=== PATIENT | female | born 1985 | race Two or more races ===

== ENCOUNTER 2020-08-10 09:01 | Outpatient (REF) | payer OTHER, SELFPAY ==
[2020-08-10 14:34] LABS: CT PCR NOT DETECTED (Not Detect.); NG PCR NOT DETECTED (Not Detect.)
[2020-08-11 09:26] LABS: BV Int Neg Control Negative (Negative); BV Int Pos Control Positive (Positive)
[2020-08-24 13:01] LABS: HPV mRNA E6/E7 rflx Not Detected
== END 2020-08-10 09:02 | disposition home or self-care (01) ==
LOC: HO.LAB 09:01
PROVIDERS: PCP Internal Medicine; Visit Provider Advanced Practice Midwife
DX: Z01.419 Encounter for gynecological examination (general) (routine) without abnormal findings (principal); Z11.51 Encounter for screening for human papillomavirus (HPV); F17.210 Nicotine dependence, cigarettes, uncomplicated; Z88.8 Allergy status to other drugs, medicaments and biological substances; Z91.013 Allergy to seafood
CPT/HCPCS: 36415; 87480; 87491; 87510; 87591; 87624; 87660; 88142

== ENCOUNTER 2021-01-11 08:17 | Outpatient (REF) | payer OTHER, SELFPAY ==
[2021-01-11 09:42] LABS: MANUAL DIFF FLAG NO
[2021-01-11 09:49] LABS: Basophils Percent Auto 0.6 % (0-2); Eosinophils Absolute Auto 0.3 X10*3/uL (0.0-0.4); Eosinophils Percent Auto 5.5 % (0-4); Hematocrit 40.7 % (37-47); Hemoglobin 12.6 g/dl (12.0-16.0); Imm Gran Abs Auto 0.01 X10*3/uL (0.00-0.03); Imm Gran Pct Auto 0.2 % (0.0-0.4); Lymphocytes Absolute Auto 1.8 X10*3/uL (1.2-4.9); Lymphocytes Percent Auto 29.1 % (20-40); Mean Corpuscular Hemoglobin 26.6 pg (27.0-33.0); Mean Platelet Volume 11.4 fL (9.4-12.3); Monocytes Absolute Auto 0.4 X10*3/uL (0.1-1.2); Monocytes Percent Auto 6.3 % (2-11); Neutrophils Absolute Auto 3.6 X10*3/uL (2.0-8.3); Neutrophils Percent Auto 58.3 % (45-73); Platelet Count 245 X10*3/uL (160-400); Red Blood Count 4.73 X10*6/uL (4.20-5.50); White Blood Count 6.2 X10*3/uL (4.8-10.8)
[2021-01-11 10:14] LABS: Alanine Aminotransferase 13 U/L (0-31); Albumin Level 4.2 g/dL (3.5-5.0); Alkaline Phosphatase 36 U/L (39-117); Anion Gap 12 (12-20); Aspartate Amino Transferase 14 U/L (5-31); Bilirubin Total 0.6 mg/dL (0.0-1.0); Blood Urea Nitrogen 13 mg/dL (9-16); Calcium 9.2 mg/dL (8.4-10.2); Carbon Dioxide 25 mmol/L (22-29); Chloride 107 mmol/L (96-108); Estimated Glomerular Filt Rate > 60; Glucose Fasting 90 mg/dL (60-99); Potassium 4.6 mmol/L (3.3-5.1); Sodium 139 mmol/L (135-145); Total Protein 6.9 g/dL (6.5-8.0)
[2021-01-11 10:37] LABS: Thyroid Stimulating Hormone 1.13 uIU/mL (0.32-4.0)
[2021-01-20 12:42] LABS: Vitamin D 25-OH, D2 5 ng/mL; Vitamin D 25-OH, D3 27 ng/mL; Vitamin D 25-OH, Total 32 ng/mL (30-100)
== END 2021-01-11 08:18 | disposition home or self-care (01) ==
LOC: HO.LAB 08:17
PROVIDERS: PCP Internal Medicine; Visit Provider Internal Medicine
DX: R53.82 Chronic fatigue, unspecified (principal); E55.9 Vitamin D deficiency, unspecified; D64.9 Anemia, unspecified
CPT/HCPCS: 36415; 80053; 82306; 84443; 85025

== ENCOUNTER 2021-01-19 15:01 | Outpatient (REF) | payer OTHER, SELFPAY ==
--- NOTE | ~2021-01-19 | MM_ITS ---
EXAMINATION: MM DIAGNOSTIC DIGITAL BREAST TOMOSYNTHESIS, BILATERAL Targeted left breast ultrasound CLINICAL INFORMATION: Left breast lump 1:00 position The lifetime risk of breast cancer based on the Tyrer-Cuzick Model is 12.3%. COMPARISON: Mammography: None TECHNIQUE: Digital breast tomosynthesis is performed in both the craniocaudal and mediolateral oblique views along with computer-aided detection (CAD). Synthesized 2D images are generated from the tomosynthesis. FINDINGS: The breasts are heterogeneously dense, which may obscure small masses (ACR BI-RADS breast composition Category c). No specific right breast abnormalities are identified to suggest malignancy. No abnormal dominant mass or suspicious grouping of microcalcifications. Imaging of the left breast in region of palpable abnormality demonstrates some dense breast tissue with some scattered calcifications. There is no evidence of layering of the calcifications. There is also noted to be a well-circumscribed 7 x 4 mm density about the deep lateral aspect of the left breast likely representing a small lymph node. Targeted left breast ultrasound demonstrated a simple appearing cyst 12:00 position 3 cm from nipple measuring 7 x 7 x 3 mm in size. No suspicious shadowing lesion was appreciated. No edematous change within the parenchyma is seen. No axillary abnormality is appreciated. Due to the asymmetric grouping of calcifications in region of palpable abnormality I recommend stereotactic core biopsy for sampling of the calcifications. No other grouping of calcifications are seen within either breast. Results are discussed with the patient at time of visit. Referring provider's office was notified of the above recommendation on January 19, 2021 with the radiology patient navigator speaking to Blanca. MM/MM tomosynthesis diagnostic BI IMPRESSION: Grouped calcifications in region of palpable abnormality upper outer aspect of the left breast for which stereotactic core biopsy is recommended. ASSESSMENT: BI-RADS 4: Suspicious RECOMMENDATION: Stereotactic core biopsy left breast calcifications This patient's information was entered into a reminder system with a target due date for their next mammogram.
--- NOTE | ~2021-01-19 | US_ITS ---
EXAMINATION: US DIAGNOSTIC ULTRASOUND BREAST, LEFT CLINICAL INFORMATION: Palpable abnormality upper outer aspect left breast. COMPARISON: Mammography of same day. TECHNIQUE: Ultrasound of the breast is performed with real-time plunkett scale imaging and color Doppler. FINDINGS: Targeted left breast ultrasound demonstrated a simple appearing cyst 12:00 position 3 cm from nipple measuring 7 x 7 x 3 mm in size. No suspicious shadowing lesion was appreciated. No edematous change within the parenchyma is seen. No axillary abnormality is appreciated. Due to the asymmetric grouping of calcifications in region of palpable abnormality I recommend stereotactic core biopsy for sampling of the calcifications. No other grouping of calcifications are seen within either breast. Results are discussed with the patient at time of visit. Referring provider's office was notified of the above recommendation on January 19, 2021 with the radiology patient navigator speaking to Blanca. US/US breast LT limited IMPRESSION: Grouped calcifications in region of palpable abnormality upper outer aspect of the left breast for which stereotactic core biopsy is recommended. ASSESSMENT: BI-RADS 4: Suspicious RECOMMENDATION: Stereotactic core biopsy left breast calcifications
== END 2021-01-19 15:02 | disposition home or self-care (01) ==
LOC: HO.MAMMO 15:01
PROVIDERS: PCP Internal Medicine; Visit Provider Internal Medicine
DX: N63.21 Unspecified lump in the left breast, upper outer quadrant (principal)
CPT/HCPCS: 76642; 77062; 77066

== ENCOUNTER 2021-01-24 09:58 | Outpatient (REF) | payer OTHER, SELFPAY ==
--- NOTE | ~2021-01-24 | MM_ITS ---
EXAMINATION: STEREOTACTIC TOMOSYNTHESIS-GUIDED VACUUM-ASSISTED BREAST BIOPSY, LEFT SPECIMEN RADIOGRAPH, LEFT POST PROCEDURE DIGITAL MAMMOGRAM, LEFT CLINICAL INFORMATION: 35-year-old for stereotactic biopsy regional calcifications anterior 12:00 left breast. Patient recently evaluated for palpable fullness 1:00 left breast in area of calcifications. Family history breast cancer, paternal aunt. TC score 12%. COMPARISON: Mammography and targeted left breast ultrasound 01/19/2021. In addition, comparison made with magnification CC and magnification ML views of the left calcifications performed prior to the stereotactic procedure today. TECHNIQUE/PROCEDURE: Informed consent was obtained from the patient after discussion of the benefits, risks, and alternatives to biopsy today. Patient appeared to understand. Gave opportunity for questions. Patient signed consent form. BIOPSY TABLE: [employer] Prone Biopsy System. LESION: Loosely grouped regional calcifications of variable attenuation anterior 12:30 o'clock. Differential considerations include fibrocystic changes, pseudoangiomatous stromal hyperplasia, fibroadenomatous changes, or other. LOCAL ANESTHESIA: 6 mL 1% lidocaine; 10 mL 1% lidocaine with epinephrine. DERMATOTOMY: Single skin caesar dermatotomy performed. NEEDLE: Profitero Eviva 9-gauge vacuum assisted core biopsy device. APPROACH: craniocaudal. TARGETING: Combination of digital breast tomosynthesis and stereotactic digital mammography used for targeting. CORES: Total 15 cores obtained but estimate 6 were within a transient 2 cm hematoma at biopsy site and only provided clot and no tissue. CLIP: SurFootnote SecurMark T-shaped marker. SPECIMEN RADIOGRAPH: Specimen radiograph is taken in separate room using digital mammography. There are at least 5 calcifications in the excised cores, one is coarser and another 4 are faint punctate. POST PROCEDURE UNILATERAL DIGITAL MAMMOGRAM: The post biopsy mammogram is performed in separate room using separate digital mammography equipment from the biopsy procedure. CC and ML views are obtained. The breasts are heterogeneously dense, which may obscure small masses (breast composition category: c). The clip marker is approximately 6 mm more superficial from the loosely grouped calcifications, likely minor accordion effect. The calcifications appear decreased in number posterior sampling. No gross hematoma. The patient tolerated the procedure well. No immediate complications. Home instructions reviewed with the patient. Final pathology results are pending. MM/MM stereotactic biopsy LT IMPRESSION: 1. Digital tomosynthesis-guided core biopsy left breast with clip placement. 2. Final pathology results pending. An addendum report will be issued.
== END 2021-01-24 09:59 | disposition home or self-care (01) ==
LOC: HO.MAMMO 09:58
PROVIDERS: Visit Provider Surgery
DX: N92.1 Excessive and frequent menstruation with irregular cycle (principal)
CPT/HCPCS: 19081; 88305; 88341; 88342; 99202; A4648

== ENCOUNTER → 2021-01-31 15:37 | Outpatient (BNVA) | payer OTHER, SELFPAY | PROVIDERS: PCP Internal Medicine; Referring Provider Internal Medicine; Visit Provider Surgery | DX: R92.1 Mammographic calcification found on diagnostic imaging of breast (principal); R53.82 Chronic fatigue, unspecified; J45.20 Mild intermittent asthma, uncomplicated; Z88.1 Allergy status to other antibiotic agents; Z91.013 Allergy to seafood | CPT/HCPCS: 99212 ==

== ENCOUNTER 2021-04-23 13:55 | Outpatient (REF) | payer OTHER, SELFPAY ==
[2021-04-23 14:52] LABS: Influenza A PCR NEGATIVE (Negative); Influenza B PCR NEGATIVE (Negative); Resp Syncy Virus RNA Qual PCR NEGATIVE (Negative); SARS COV2 PCR INHOUSE NEGATIVE (Negative)
== END 2021-04-23 13:56 | disposition home or self-care (01) ==
LOC: HO.LNP 13:55
PROVIDERS: Visit Provider Physician Assistant Medical
DX: Z20.822 Contact with and (suspected) exposure to COVID-19 (principal); J06.9 Acute upper respiratory infection, unspecified
CPT/HCPCS: 0241U

== ENCOUNTER 2022-03-28 09:40 | Outpatient (REF) | payer OTHER, SELFPAY ==
[2022-03-28 13:40] LABS: CT PCR NOT DETECTED (Not Detect.); NG PCR NOT DETECTED (Not Detect.)
[2022-03-29 11:12] LABS: BV Int Neg Control Negative (Negative); BV Int Pos Control Positive (Positive)
== END 2022-03-28 09:41 | disposition home or self-care (01) ==
LOC: HO.LNP 09:40
PROVIDERS: Visit Provider Advanced Practice Midwife
DX: Z01.419 Encounter for gynecological examination (general) (routine) without abnormal findings (principal)
CPT/HCPCS: 87480; 87491; 87510; 87591; 87660

== ENCOUNTER 2022-03-28 13:30 | Outpatient (REF) | payer OTHER, SELFPAY ==
--- NOTE | ~2022-03-28 | MM_ITS ---
EXAMINATION: MM DIAGNOSTIC DIGITAL BREAST TOMOSYNTHESIS, BILATERAL CLINICAL INFORMATION: Segmental calcifications 12:30 left breast status post benign stereotactic biopsy 01/24/2021. Assess residual calcifications. COMPARISON: Mammography: 01/24/2021, baseline 01/19/2021. TECHNIQUE: Digital breast tomosynthesis is performed in both the craniocaudal and mediolateral oblique views along with computer-aided detection (CAD). Synthesized 2D images are generated from the tomosynthesis. Magnification views left breast are obtained in the CC x2 and ML projections. FINDINGS: The breasts are heterogeneously dense, which may obscure small masses (ACR BI-RADS breast composition Category c). There is biopsy clip marker 12:00 left breast. Residual segmental calcifications are stable. No increasing calcifications from prior magnification views 01/24/2021. Calcifications will be reassessed again in 12 months. The bilateral breasts show no developing density or interval mass or architectural abnormality. The axilla and skin contours are unremarkable. Results are provided to the patient at time of visit by the technologist. MM/MM tomosynthesis diagnostic BI IMPRESSION: -No mammographic evidence of malignancy. -Residual segmental calcifications left breast stable. ASSESSMENT: BI-RADS 3: Probably Benign RECOMMENDATION: Bilateral mammography in 12 months to include left magnification views. This patient's information was entered into a reminder system with a target due date for their next mammogram.
== END 2022-03-28 13:31 | disposition home or self-care (01) ==
LOC: HO.MAMMO 13:30
PROVIDERS: PCP Internal Medicine; Visit Provider Internal Medicine
DX: N63.25 Unspecified lump in the left breast, overlapping quadrants (principal)
CPT/HCPCS: 77062; 77066

== ENCOUNTER 2022-12-10 14:37 | Outpatient (AMB) | payer OTHER, SELFPAY ==
[2022-12-10 14:49] VITALS: BP 104/68; PULSE 84; O2SAT 97; BMI 23.9
--- NOTE | 2022-12-10 14:49 | A.OFFPC_ITS ---
Vital Signs 12/10/22 14:49 Height 5 ft 4 in Weight 139 lb 8 oz BMI 23.9 BP 104/68 Blood Pressure Location Lt brachial Position Sitting Pulse 84 Pulse Source Pulse Oximeter Pulse Oximetry (%) 97 Oxygen Delivery Method Room Air Intake Visit Reasons: physical exam Risk Management Analyst Required: No Accompanied by: Self / Same As Patient Allergies levofloxacin [From LEVAQUIN] Allergy (Unknown, Verified 12/10/22 15:23) HIVES shellfish derived [SHELLFISH DERIVED] Allergy (Unknown, Verified 12/10/22 15:23) THROAT ITCHINESS/BURNING/SWELLING shrimp/shellfish Allergy (Intermediate, Uncoded 03/28/22 09:15) angioedema Medication List - Last Reconciled 12/10/22 by Matthew Lopez PA-C albuterol sulfate 2.5 mg (3 mL) inhalation Q4-6H PRN 30 days albuterol sulfate 90 mcg/actuation 1 inh inhalation QID 30 days Tobacco use date assessed: 03/28/22 Dental Screening Dental Screen Date: 12/10/22 Did you have a dental visit in the last 12 months?: Yes Did you have a dental problem in the last 6 months where you did not have access to dental care?: No Was dental information given to patient?: Patient has dentist HPI physical exam HPI Details Patient is a 37-year-old female here today for routine annual physical. Patient's past medical history significant for mild persistent asthma [place]s--> reports right thumb pain over the last 2 months, reports a fall injuring her right thumb. Does have localized pain over the base of her right thumb that radiates into her radial aspect of the wrist. Has been having somewhat difficulty with opening jars and turning doorknobs. Otherwise has no severe loss of function. .. Asthma: Has been well controlled with only p.r.n. use of her albuterol inhaler. Denies any recent exacerbations of her asthma. Did have a mild exacerbation in April of 2022 requiring antibiotics. Vaccines: Up-to-date with COVID vaccine, declines flu vacc, considering pneumonia vaccine. considering Tdap. 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 [facility] Medical History Breast calcification, left Chronic diarrhea Chronic fatigue Left breast mass Mild intermittent asthma in adult without complication Physical exam Surgical History History of left breast biopsy History of tubal ligation Family History Mother Hypertension Mental health disorder Father Prostate cancer Hypertension Paternal Grandfather Esophageal cancer Family/Other Substance use disorder Paternal Aunt Breast cancer Social History (Updated 12/10/22 @ 15:27 by Matthew Lopez PA-C) Housing: House Alcohol intake: current Alcohol intake frequency: a few times a month Alcohol type: beer Patient Tobacco Use Status: Never used Tobacco e-Cigarette/Vaping Use: Never Used Second Hand Smoke Exposure: No Substance Use Type: Marijuana service: No Current occupational status: employed Current occupation: [employer] Current occupational exposures/hazards: No Gender identity: Female Cognitive needs: No Hearing needs: No Vision needs: No Female Reproductive History Menstrual Age of Menarche: 10 Questionnaire PHQ-9 Over the last 2 weeks, how often have you been bothered by any of the following problems? 1. Little interest or pleasure in doing things: not at all 2. Feeling down, depressed, or hopeless: not at all 3. Trouble falling or staying asleep, or sleeping too much: not at all 4. Feeling tired or having little energy: not at all 5. Poor appetite or overeating: not at all 6. Feeling bad about yourself - or that you are a failure or have let yourself or your family down: not at all 7. Trouble concentrating on things, such as reading the newspaper or watching television: not at all 8. Moving or speaking so slowly that other people could have noticed. Or the opposite - being so fidgety or restless that you have been moving around a lot more than usual: not at all 9. Thoughts that you would be better off or of hurting yourself in some way: not at all Total score: 0 Depression Screening Interpretation: Negative Source: Developed by Drs. Ronnell Lopez, Carissa Mujica, Tad Burrell and colleagues, with an educational brandon from [employer] Thrive Questionnaire Date Thrive assessed: 12/10/22 I am a: Patient What is your living situation today?: I have a steady place to live Within the past 12 months, did the food you bought not last and you didn't have the money to get more?: Never true Within the past 12 months, did you worry whether your food would run out before you got money to buy more?: Never true Do you have trouble paying for medicines?: No Do you have trouble getting transportation to medical appointments?: No Do you have trouble paying your heating and electricity bill?: No Do you have trouble taking care of your child, family member or friend?: No Do you have trouble with day-to-day activities such as bathing, preparing meals, shopping, managing finances, etc.?: No Are you currently unemployed and looking for a job?: No Are you interested in more education?: No Please select the resources that you would like help with: None Currently or been in a relationship where the following occur: no concerns reported AUDIT C Alcohol Use Questionnaire (AUDIT-C) 1. How often do you have a drink containing alcohol?: Monthly or less 2. How many drinks containing alcohol do you have on a typical day when you are drinking?: 1 or 2 3. How often do you have six or more drinks on one occasion?: Never Total Score: 1 SHANIA-7 AMB Questionnaire SHANIA-7 Date SHANIA - 7 assessed: 12/10/22 Feeling nervous, anxious, or on edge: 0 = Not at all Not being able to stop or control worryin = Not at all Worrying too much about different things: 0 = Not at all Trouble relaxin = Not at all Being so restless that it is hard to sit still: 0 = Not at all Becoming easily annoyed or irritable: 0 = Not at all Feeling afraid as if something awful might happen: 0 = Not at all Total SHANIA-7 score (0-4 normal; 5-9 mild; 10-14 moderate; 15-21 severe): 0 Source: Developed by Drs. Ronnell Lopez, Carissa Mujica, Tad Burrell and colleagues, with an educational brandon from [employer] ACT Questionnaire In the past 4 weeks, how much of the time did your asthma keep you from getting as much done at work, school or at home?: None of the time During the past 4 weeks, how often have you had shortness of breath?: Not at all During the past 4 weeks, how often did your asthma symptoms wake you up at night or earlier than usual in the morning?: Not at all During the past 4 weeks, how often have you had to use your rescue inhaler or nebulizer medication?: Not at all How would you rate your asthma control during the past 4 weeks?: Completely controlled ACT Interpretation: Negative Score: 25 Review of Systems Const Denies body aches, Denies chills, Denies excessive sweating, Denies fatigue, Denies fever(s) and Denies headache(s) Eyes Denies blurry vision ENT Denies dysphagia, Denies vertigo, Denies dizziness, Denies headache(s), Denies hearing loss and Denies tinnitus Card Denies chest pain, Denies chest pain with activity, Denies syncope, Denies irregular heart rhythm and Denies dyspnea Resp Denies chest congestion, Denies cough, Denies hemoptysis, Denies dyspnea and Denies wheezing GI Denies abdominal pain, Denies melena, Denies hematochezia, Denies coffee ground emesis, Denies dysphagia, Denies diarrhea, Denies nausea and Denies vomiting Denies urinary frequency, Denies dysuria, Denies urinary hesitancy and Denies urinary urgency Musc Denies arthralgias, Denies limited range of motion, Denies muscle cramps and Denies muscle weakness Skin/Breast Denies rash and Denies skin ulcer Neuro Denies Abnormal speech present, Denies confusion, Denies vertigo, Denies dizziness, Denies syncope, Denies headache(s), Denies memory loss and Denies seizure-like activity Psych Denies anxiety, Denies confusion, Denies depression, Denies memory loss, Denies panic attacks and Denies paranoia Endo Denies excessive sweating, Denies fatigue, Denies flushing, Denies polydipsia and Denies polyuria Aller/Immun Denies wheezing Physical exam (Primary Care) Vital Signs: Last Vital Signs Pulse 84 12/10/22 14:49 BP 104/68 12/10/22 14:49 Pulse Ox 97 12/10/22 14:49 Oxygen Delivery Method Room Air 12/10/22 14:49 BMI result Body Mass Index 23.9 Tobacco/Smoking Status: Tobacco use Status Tobacco use date assessed 03/28/22 12/10/22 14:55 Patient Tobacco Use Status Never used Tobacco 12/10/22 15:27 e-Cigarette/Vaping Use Never Used 12/10/22 15:27 PHQ-9: PHQ-9 Score PHQ-9: Total score 0 12/10/22 15:27 Depression Screening Interpretation: Negative Thrive Assessment: Date of Thrive Assessment Date Thrive assessed 12/10/22 12/10/22 14:55 Currently or been in a relationship where the following occur: no concerns reported Const General: cooperative, comfortable, no acute distress, alert and awake; No confusion Orientation/consciousness: oriented to person, oriented to place, patient oriented x3 and No confusion HENMT Head: Yes normocephalic Ears: external ears normal and TM's normal bilaterally Face and sinus: No sinus tenderness Mouth: Normal oral and palatal mucosa present and tongue normal Teeth and gingiva: dentition normal and gingiva normal Throat: Yes posterior oropharynx normal, Yes tonsils normal and Yes uvula midlin e Eyes Conjunctivae: conjunctivae normal Sclerae: sclerae normal Pupils: Equal, round and reactive pupils present EOM: EOMs intact bilaterally Direct Ophthalmoscopy: No no photophobia Neck Neck: Yes no lymphadenopathy, No tender and Yes no JVD Thyroid: Thyroid normal Carotids: no bruits Chest Chest palpation & inspection: no tenderness Resp Effort & Inspection: normal respiratory effort, no audible wheezes, not labored and no stridor Auscultation: no crackles, no rales, no rhonchi and no wheezes Cardio Jugular venous distension: no JVD Rate: regular rate, not bradycardic and not tachycardic Rhythm: regular rhythm Bruits: no carotid bruits Peripheral pulses: Peripheral pulses 2+ throughout GI Inspection: Yes normal to inspection, No abdominal wall ecchymosis and No visible herniation Palpation (GI): Soft to palpation, nontender, no guarding, not rigid and No hepatosplenomegaly present Auscultation: normoactive bowel sounds General: Yes no CVA tenderness Back/Spine/Pelvis Back: no CVA tenderness and No back tenderness Cervical Spine: cervical ROM normal Thoracic/Lumbar Spine: thoracic and lumbar spine normal to inspection, straight leg raise negative bilaterally, No thoraco-lumbar ROM limited and No lumbar spinal tenderness Skin Lesions: no lesions Rashes: no rashes Wounds: no wounds Neuro General: oriented to person, oriented to place, patient oriented x3, CN's II-XI intact bilaterally and No confusion Cranial nerves: Yes Equal, round and reactive pupils present and Yes Normal accommodation reflex present Cognition (Neuro): normal cognition Speech: No Abnormal speech present Gait exam (Neuro): Normal gait present Motor exam (neuro): 5/5 motor strength present throughout Extrem Right upper extremity: full ROM; no cyanosis Left upper extremity: full ROM; no cyanosis Right lower extremity: no edema Left lower extremity: no edema Psych Appearance: grossly normal Mental Status: mental status grossly normal Affect: normal affect Attitude: cooperative Thought process: Normal thought process present Assessment and Plan Assessment & Plan (1) Annual physical exam: Code(s): Z00.00 - Encounter for general adult medical examination without abnormal findings (2) Asthma: Code(s): J45.909 - Unspecified asthma, uncomplicated Qualifiers: Asthma complication type: with acute exacerbation Asthma persistence: intermittent Asthma severity: mild Qualified Code(s): J45.21 - Mild intermittent asthma with (acute) exacerbation Plan: Patient's asthma has been well controlled with only p.r.n. use of her albuterol inhaler. Denies any nighttime awakenings with asthma symptoms are recent asthma exacerbations. Advised on pneumonia vaccine though patient is considering (3) Screening for diabetes mellitus (DM): Code(s): Z13.1 - Encounter for screening for diabetes mellitus (4) Tenosynovitis of right wrist: Code(s): M65.9 - Synovitis and tenosynovitis, unspecified Plan: Seems to have a right wrist tenosynovitis secondary to a previous trauma 2 months ago. Advised on occupational therapy and perhaps getting x-ray of the right wrist the patient will like to hold off for now and use cool compress and NSAIDs as needed. Orders: Orders Comprehensive [place]. Panel Fast 12/10/22 Z13.1 - Encounter for screening for diabetes mellitus Complete Blood Count no Diff 12/10/22 Z13.1 - Encounter for screening for diabetes mellitus Coding Level of Care Code Est Pt Prev Care [id number]) Diagnoses Annual physical exam Z00.00 Asthma J45.21 Asthma complication type: with acute exacerbation Asthma persistence: intermittent Asthma severity: mild Screening for diabetes mellitus (DM) Z13.1 Tenosynovitis of right wrist M65.9 Additional Codes PHQ-9 - 99460 - PHQ-9 Billing: Y ([id number])
== END 2022-12-10 15:45 | disposition home or self-care (01) ==
PROVIDERS: PCP Physician Assistant; Visit Provider Physician Assistant
DX: Z00.00 Encounter for general adult medical examination without abnormal findings (principal); J45.21 Mild intermittent asthma with (acute) exacerbation; Z13.1 Encounter for screening for diabetes mellitus; M65.9 Synovitis and tenosynovitis, unspecified
CPT/HCPCS: 99395

== ENCOUNTER 2023-01-09 09:01 | Outpatient (REF) | payer OTHER, SELFPAY ==
--- NOTE | ~2023-01-09 | XR_ITS ---
EXAMINATION: XR FOOT, LEFT CLINICAL INFORMATION: Left foot pain, no trauma COMPARISON: None available. TECHNIQUE: AP, lateral, and oblique views of the left foot. FINDINGS: The bones and soft tissues are normal. No fracture. Alignment is anatomic. Joint spaces are maintained. XR/XR foot LT min 3V IMPRESSION: Normal left foot.
--- NOTE | ~2023-01-09 | XR_ITS ---
EXAMINATION: XR HAND, RIGHT CLINICAL INFORMATION: Sprain of right thumb COMPARISON: None available. TECHNIQUE: PA, lateral, and oblique views of the right hand. FINDINGS: The bones and soft tissues are normal. No fracture. Alignment is anatomic. Joint spaces are maintained. No erosions or soft tissue calcifications. XR/XR hand RT min 3V IMPRESSION: Unremarkable plain radiographs of the right hand.
[2023-01-09 10:02] LABS: Hematocrit 41.3 % (37.0-47.0); Mean Corpuscular HGB Conc 31.5 g/dl (31.0-35.0); Mean Corpuscular Hemoglobin 26.9 pg (27.0-33.0); Mean Corpuscular Volume 85.3 fL (80.0-98.0); Mean Platelet Volume 11.2 fL (9.4-12.3); Platelet Count 244 X10*3/uL (160-400); Red Blood Count 4.84 X10*6/uL (4.20-5.50); Red Cell Distribution Width 12.8 % (11.0-16.0); White Blood Count 6.7 X10*3/uL (4.8-10.8)
[2023-01-09 11:02] LABS: Alanine Aminotransferase 14 U/L (0-31); Albumin Level 4.4 g/dL (3.5-5.0); Alkaline Phosphatase 42 U/L (39-117); Anion Gap 11 (12-20); Aspartate Amino Transferase 15 U/L (5-31); Bilirubin Total 0.5 mg/dL (0.0-1.0); Blood Urea Nitrogen 11 mg/dL (9-16); Calcium 9.4 mg/dL (8.4-10.2); Carbon Dioxide 26 mmol/L (22-29); Chloride 108 mmol/L (96-108); Estimated Glomerular Filt Rate > 60; Glucose Fasting 86 mg/dL (60-99); Potassium 4.1 mmol/L (3.3-5.1); Sodium 141 mmol/L (135-145); Total Protein 7.5 g/dL (6.5-8.0)
== END 2023-01-09 09:02 | disposition home or self-care (01) ==
LOC: HO.LAB 09:01
PROVIDERS: PCP Physician Assistant; Visit Provider Physician Assistant
DX: Z13.1 Encounter for screening for diabetes mellitus (principal); M79.672 Pain in left foot; S63.601A Unspecified sprain of right thumb, initial encounter
CPT/HCPCS: 36415; 73130; 73630; 80053; 85027

== ENCOUNTER 2023-01-09 11:04 | Outpatient (AMB) | payer OTHER, SELFPAY ==
[2023-01-09 11:37] VITALS: BP 90/62; PULSE 70; TEMP 36.4; O2SAT 98; BMI 23.4
--- NOTE | 2023-01-09 11:37 | AM.OFFWIN_ITS ---
Intake Vital Signs 01/09/23 11:37 Height 5 ft 4 in Weight 136 lb 4 oz BMI 23.4 BP 90/62 Blood Pressure Location Lt brachial Position Sitting Pulse 70 Pulse Source Pulse Oximeter Temp 97.6 F Temp Source Temporal Artery Scan Pulse Oximetry (%) 98 Oxygen Delivery Method Room Air Intake Visit Reasons: EP, Pain under left foot Intake Note: Pt is here c/o left foot pain for over three weeks. Pt states no falls or injuries. Patient Tobacco Use Status: Never used Tobacco Allergies levofloxacin [From LEVAQUIN] Allergy (Unknown, Verified 01/09/23 11:38) HIVES shellfish derived [SHELLFISH DERIVED] Allergy (Unknown, Verified 01/09/23 11:38) THROAT ITCHINESS/BURNING/SWELLING shrimp/shellfish Allergy (Intermediate, Uncoded 01/09/23 11:38) angioedema HPI EP, Pain under left foot HPI Details Patient is a 37-year-old female who comes to the walk-in clinic complaining of 3 weeks left arch pain in her left foot. She states that she did start wearing new shoes, that have little support (Crocs), but there was no acute trauma that occurred. She denies weakness numbness or tingling to the extremity. No underlying repetitive trauma history. 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 No fever or chills, rashes, swelling, or other associated symptoms. Patient also complains of persistent pain to her right thumb, after a fall a few months ago. She did not seek treatment initially, but states she discussed with her PCP NICKI Lopez recently and reports there was no plan for further evaluation or treatment. She requests evaluation and treatment for this today also. No numbness or tingling, but there is pain with use. Some weakness reported, especially with opening jars or twisting motion with the right hand. [facility] Medical History Breast calcification, left Chronic diarrhea Chronic fatigue Left breast mass Mild intermittent asthma in adult without complication Physical exam Surgical History History of left breast biopsy History of tubal ligation Family History Mother Hypertension Mental health disorder Father Prostate cancer Hypertension Paternal Grandfather Esophageal cancer Family/Other Substance use disorder Paternal Aunt Breast cancer Social History (Updated 12/10/22 @ 15:27 by Matthew Lopez PA-C) Housing: House Alcohol intake: current Alcohol intake frequency: a few times a month Alcohol type: beer Patient Tobacco Use Status: Never used Tobacco e-Cigarette/Vaping Use: Never Used Second Hand Smoke Exposure: No Substance Use Type: Marijuana service: No Current occupational status: employed Current occupation: [employer] Current occupational exposures/hazards: No Gender identity: Female Cognitive needs: No Hearing needs: No Vision needs: No Female Reproductive History Menstrual Age of Menarche: 10 Review of Systems Const All systems reviewed & are unremarkable except as noted in HPI and below Physical Exam Vital Signs: Last Vital Signs Temp 97.6 F 01/09/23 11:37 Pulse 70 01/09/23 11:37 BP 90/62 01/09/23 11:37 Pulse Ox 98 01/09/23 11:37 Oxygen Delivery Method Room Air 01/09/23 11:37 BMI result Body Mass Index 23.4 Const General: cooperative, healthy appearing, comfortable, no acute distress, alert, awake, Physically active and well groomed; No anxious, diaphoretic, ill appearing, intoxicated appearing, poor hygiene or tired appearing Nutritional Appearance: average body habitus Limitations: no limitations Resp Effort & Inspection: normal respiratory effort Cardio Rate: regular rate Rhythm: regular rhythm Skin Other: Good color, warm and dry Extrem Right upper extremity: normal to inspection, full ROM, normal capillary refill, no joint enlargement and Extremity exam: right hand (Tender to the base of right thumb, positive de Quervain) Details: normal to inspection, normal capillary refill, neuromotor exam normal, tendon exam normal (Decreased strength with pinching grasping of the thumb and index finger) and vascular exam Details: radial pulse present and ulnar pulse present; not cool and no cyanosis; no unusual warmth and no swelling; no cyanosis and no edema Left lower extremity: normal to inspection, full ROM, normal capillary refill and foot (Tenderness to the arch area on the plantar aspect of the foot) Details: toes with normal ROM; no cyanosis, no edema and joint enlargement noted Psych Appearance: grossly normal Mental Status: mental status grossly normal Speech and movement: Normal speech and movement present Affect: normal affect Attitude: cooperative Thought process: Normal thought process present Insight: Good insight present (Psych) Judgement: Good judgement present (Psych) Results Reviewed Results Reviewed: Reviewed x-ray findings, no acute trauma noted Assessment & Plan Assessment & Plan (1) Foot pain, left: Code(s): M79.672 - Pain in left foot Plan: Likely tendinitis, possibly related to poor arch support from wearing nonsupportive shoes. Plain film x-ray of the left foot, to rule out osseous findings, which was unremarkable. Advised that she consider orthotics, if symptoms persist we can refer her to Podiatry as needed. Will write her for anti-inflammatories in the meantime. (2) Sprain of hand, thumb, right: Code(s): S63.601A - Unspecified sprain of right thumb, initial encounter Plan: Patient likely sprained radial collateral ligament of the thumb, she has no gross laxity with stress, and does have some strength but pain with movement still a few months out from injury. Plain film x-ray today unremarkable per my read. I put her in a thumb spica splint to help relieve symptoms, which she did find some relief with. We discussed possible further imaging needed, and she wants to follow-up with her PCP. She can take the anti-inflammatories prescribed for her foot as needed. Orders: Orders XR foot LT min 3V 01/09/23 M79.672 - Pain in left foot XR hand RT min 3V 01/09/23 S63.601A - Unspecified sprain of right thumb, initial encounter Medications: New naproxen 500 mg PO BID 14 days PRN 30 tabs 0RF pain Coding Level of Care Code Est Pt Level 4 (75599) Diagnoses Foot pain, left M79.672 Sprain of hand, thumb, right S63.601A
== END 2023-01-09 12:55 | disposition home or self-care (01) ==
PROVIDERS: PCP Physician Assistant; Visit Provider Physician Assistant Medical
DX: M79.672 Pain in left foot (principal); S63.601A Unspecified sprain of right thumb, initial encounter
CPT/HCPCS: 99214

== ENCOUNTER 2023-01-09 12:01 | Outpatient (REF) | payer OTHER, SELFPAY | END 2023-01-09 12:02 | disposition home or self-care (01) | LOC: HO.HMGCX 12:01 | PROVIDERS: Visit Provider Physician Assistant Medical | DX: Z13.89 Encounter for screening for other disorder (principal) ==

== ENCOUNTER 2023-02-24 09:28 | Outpatient (AMB) | payer OTHER, SELFPAY ==
--- NOTE | 2023-02-24 10:00 | MHC.OFFWIV ---
Intake Vital Signs 02/24/23 10:01 Height 5 ft 4 in Weight 63.106 kg BMI 23.9 BP 124/72 Blood Pressure Location Lt brachial Position Sitting Pulse 70 Pulse Source Pulse Oximeter Temp 98.3 F Temp Source Oral Pulse Oximetry (%) 97 Oxygen Delivery Method Room Air Intake Visit Reasons: EP, Asthma, Fatigue Intake Note: Patient is here today for asthma and fatigue Patient Tobacco Use Status: Never used Tobacco Allergies levofloxacin [From LEVAQUIN] Allergy (Unknown, Verified 02/24/23 10:04) HIVES shellfish derived [SHELLFISH DERIVED] Allergy (Unknown, Verified 02/24/23 10:04) THROAT ITCHINESS/BURNING/SWELLING shrimp/shellfish Allergy (Intermediate, Uncoded 01/09/23 11:38) angioedema Do you need a note to return to daycare/school/sports/work: Yes HPI HPI Comments History of Present Illness Details 1037 This is a 37-year-old female presenting with fatigue, malaise, cough that is at times productive, wheezing for the past week and half. Patient reports son at home was sick with similar symptoms however they have resolved. She reports she is using her nebulizer every 4 hours as well as her albuterol inhaler. She feels like the wheezing is terrible. Reports chest heaviness however no pain. Reports shortness of breath at rest and with exertion. Denies fevers, chills, nausea, vomiting, abdominal pain, headache, vision changes in dizziness Physical exam with significant wheezing expiratory through all lung rudd. This is likely asthma secondary to viral illness/bronchitis. Unlikely pneumonia, pulmonary embolism, ACS. No signs of dissection. Plan will give nebulizing treatment here in discharge patient home with steroids, albuterol and doxycycline to cover for possible bacterial bronchitis. Educated patient on diagnosis and treatment plan, answered all question, patient verbalizes understanding. At this time patient will be discharged home, advised to return with new or worsening symptoms. Educated on worrisome signs and symptoms and when to return. At this time I feel comfortable discharge home. [facility] Medical History Physical exam Breast calcification, left Chronic diarrhea Left breast mass Chronic fatigue Mild intermittent asthma in adult without complication Surgical History History of left breast biopsy History of tubal ligation Family History Mother Hypertension Mental health disorder Father Prostate cancer Hypertension Paternal Grandfather Esophageal cancer Family/Other Substance use disorder Paternal Aunt Breast cancer Social History Housing: House Alcohol intake: current Alcohol intake frequency: a few times a month Alcohol type: beer Patient Tobacco Use Status: Never used Tobacco e-Cigarette/Vaping Use: Never Used Second Hand Smoke Exposure: No Substance Use Type: Marijuana service: No Current occupational status: employed Current occupation: [employer] Current occupational exposures/hazards: No Gender identity: Female Cognitive needs: No Hearing needs: No Vision needs: No Female Reproductive History Menstrual Age of Menarche: 10 Review of Systems Const Details: Constitutional : No Weight loss, No Fever, No Chills, No Fatigue, No Malaise ENT/Mouth : No sore throat, No Rhinorrhea Eyes: No Eye Pain, No Swelling, No Redness Cardiovascular : No Chest Pain, + SOB, No Dyspnea on Exertion, No Orthopnea, No Edema, No Palpitations Respiratory : + Cough, + Sputum, + Wheezing Gastrointestinal : No Nausea, No Vomiting, No Diarrhea, No Constipation, No abdominal Pain, No Hematochezia, No Melena Genitourinary : No Dysuria, No Urinary Frequency, No Hematuria, Musculoskeletal : No joint pain, No Myalgias, No Joint Swelling Skin : No Skin Lesions, No rash Neuro : No Weakness, No Numbness, No Dizziness, No Headache Psych : No Anxiety/Panic, No Depression All other systems reviewed and are negative All systems reviewed & are unremarkable except as noted in HPI and below Physical Exam Vital Signs: Last Vital Signs Temp 98.3 F 02/24/23 10:01 Pulse 70 02/24/23 10:01 BP 124/72 02/24/23 10:01 Pulse Ox 97 02/24/23 10:01 Oxygen Delivery Method Room Air 02/24/23 10:01 BMI result Body Mass Index 23.9 vss Appearance: Alert.? Oriented X3.? No acute distress.? Head: Normocephalic, atraumatic, no step-offs or deformities Eyes: Pupils equal, round and reactive to light.? ENT: Pharynx normal.? Neck: Normal inspection.? Neck supple.? CVS: Normal heart rate and rhythm.? Pulses normal.? Respiratory: No respiratory distress.? Breath sounds + wheezing expirratory in all lung rdud .? Abdomen: Soft and nontender.? Skin: Skin warm and dry.? Normal skin color.? Normal skin turgor.? Extremities: No lower extremity edema.? No calf ttp. 5/5 strength to bilateral upper and lower extremities Neuro: Oriented X 3.? No motor deficit.? No sensory deficit. CN 2-12 intact Assessment & Plan Assessment & Plan (1) Asthma: Code(s): J45.909 - Unspecified asthma, uncomplicated Qualifiers: Asthma severity: mild Asthma persistence: intermittent Asthma complication type: with acute exacerbation Qualified Code(s): J45.21 - Mild intermittent asthma with (acute) exacerbation (2) Bronchitis: Code(s): J40 - Bronchitis, not specified as acute or chronic Plan Take your medications as prescribed. If you were prescribed antibiotics today, it is important that you take your medication to their entirety, do not skip any doses, do not finish them early. Follow-up with your primary care provider this week. Return to the emergency department with new or worsening symptoms. Such as fevers, chills, chest pain, shortness of breath, nausea, vomiting, dizziness, headache, vision changes, lethargy In case of emergency call 911 Orders: Orders AMB Nebulizer Treatment Today R06.02 - Shortness of breath Medications: New albuterol sulfate 2.5 mg (3 mL) inhalation ONCE 3 mL 0RF R06.02 - Shortness of breath doxycycline hyclate 100 mg PO BID 7 days 14 caps 0RF ipratropium bromide 2.5 mL inhalation ONCE 2.5 mL 0RF R06.02 - Shortness of breath albuterol sulfate 90 mcg/actuation 2 puffs inhalation Q6H PRN 6.7 grams 0RF shortness of breath or wheezing prednisone 40 mg (2 x 20 mg) PO DAILY 5 days 10 tabs 0RF Coding Level of Care Code Est Pt Level 3 (66336) Diagnoses Mild intermittent asthma with acute exacerbation J45.21 Asthma severity: mild Asthma persistence: intermittent Asthma complication type: with acute exacerbation Bronchitis J40
[2023-02-24 10:01] VITALS: BP 124/72; PULSE 70; TEMP 36.8; O2SAT 97; BMI 23.9
== END 2023-02-24 11:23 | disposition home or self-care (01) ==
PROVIDERS: PCP Physician Assistant; Visit Provider Physician Assistant
DX: J45.21 Mild intermittent asthma with (acute) exacerbation (principal); J40 Bronchitis, not specified as acute or chronic
CPT/HCPCS: 94640; 99213; J7620

== ENCOUNTER 2023-03-11 09:31 | Outpatient (AMB) | payer OTHER, SELFPAY ==
[2023-03-11 09:36] VITALS: BP 114/80; PULSE 70; O2SAT 98; BMI 23.4
--- NOTE | 2023-03-11 09:36 | MHC.PC.OV ---
Vital Signs 03/11/23 09:36 Height 5 ft 4 in Weight 136 lb 8 oz BMI 23.4 BP 114/80 Blood Pressure Location Lt brachial Position Sitting Pulse 70 Pulse Source Pulse Oximeter Pulse Oximetry (%) 98 Oxygen Delivery Method Room Air Intake Visit Reasons: headaches, palpitations,fever, coughing (-Covid) Intake Note: Pt here for headaches, cough, asthma and palpitations at night since last Friday. 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 Accompanied by: Self / Same As Patient Allergies levofloxacin [From LEVAQUIN] Allergy (Unknown, Verified 03/11/23 09:57) HIVES shellfish derived [SHELLFISH DERIVED] Allergy (Unknown, Verified 03/11/23 09:57) THROAT ITCHINESS/BURNING/SWELLING shrimp/shellfish Allergy (Intermediate, Uncoded 03/11/23 09:44) angioedema Medication List - Last Reconciled 03/11/23 by Matthew Lopez PA-C albuterol sulfate 2.5 mg (3 mL) inhalation Q4-6H PRN 30 days albuterol sulfate 90 mcg/actuation 1 inh inhalation QID 30 days albuterol sulfate 90 mcg/actuation 2 puffs inhalation Q6H PRN naproxen 500 mg PO BID PRN 14 days Tobacco use date assessed: 03/11/23 Dental Screening Dental Screen Date: 03/11/23 Did you have a dental visit in the last 12 months?: Yes Did you have a dental problem in the last 6 months where you did not have access to dental care?: No Was dental information given to patient?: Patient has dentist HPI headaches, palpitations,fever, coughing (-Covid) HPI Details Patient is a 37-year-old female here today for problem visit. Patient has a past medical history significant for asthma. She reports having headaches, palpitations, cough and a slight fever over the last 2 weeks. Was seen at urgent care was started on antibiotics and prednisone. She reports she has feels somewhat better though continues have frontal like headache and feeling somewhat fatigued. She reports testing herself for COVID and was negative. 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 [facility] Medical History Physical exam Breast calcification, left Chronic diarrhea Left breast mass Chronic fatigue Mild intermittent asthma in adult without complication Surgical History History of left breast biopsy History of tubal ligation Family History Mother Hypertension Mental health disorder Father Prostate cancer Hypertension Paternal Grandfather Esophageal cancer Family/Other Substance use disorder Paternal Aunt Breast cancer Social History Housing: House Alcohol intake: current Alcohol intake frequency: a few times a month Alcohol type: beer Patient Tobacco Use Status: Never used Tobacco e-Cigarette/Vaping Use: Never Used Second Hand Smoke Exposure: No Substance Use Type: Marijuana service: No Current occupational status: employed Current occupation: [employer] Current occupational exposures/hazards: No Gender identity: Female Cognitive needs: No Hearing needs: No Vision needs: No Female Reproductive History Menstrual Age of Menarche: 10 Questionnaire Thrive Questionnaire Date Thrive assessed: 12/10/22 SHANIA-7 AMB Questionnaire SHANIA-7 Date SHANIA - 7 assessed: 12/10/22 Source: Developed by Drs. Ronnell Lopez, Carissa Mujica, Tad Burrell and colleagues, with an educational brandon from [employer]. Review of Systems Const Reports headache(s) Eyes Denies loss of vision ENT Denies vertigo, Denies dizziness, Reports headache(s) and Denies sore throat Card Denies chest pain, Denies leg edema and Denies lightheadedness Resp Reports cough, Denies hemoptysis and Denies wheezing GI Denies abdominal pain, Denies melena, Denies constipation, Denies diarrhea and Denies vomiting Denies urinary frequency, Denies dysuria and Denies urinary urgency Musc Denies arthralgias, Denies joint swelling, Denies numbness and Denies tingling Neuro Denies Abnormal speech present, Denies behavioral changes, Denies vertigo, Denies dizziness, Reports headache(s), Denies loss of vision, Denies memory loss, Denies numbness and Denies tingling Psych Denies anxiety, Denies behavioral changes, Denies depression, Denies memory loss and Denies panic attacks Vlad/Lymph Denies easy bleeding and Denies easy bruising Aller/Immun Denies wheezing Physical exam (Primary Care) Vital Signs: Last Vital Signs Pulse 70 03/11/23 09:36 BP 114/80 03/11/23 09:36 Pulse Ox 98 03/11/23 09:36 Oxygen Delivery Method Room Air 03/11/23 09:36 BMI result Body Mass Index 23.4 Tobacco/Smoking Status: Tobacco use Status Tobacco use date assessed 03/11/23 03/11/23 09:45 Patient Tobacco Use Status Never used Tobacco 03/11/23 09:38 e-Cigarette/Vaping Use Never Used 03/11/23 09:38 Thrive Assessment: Date of Thrive Assessment Date Thrive assessed 12/10/22 03/11/23 09:38 Const General: healthy appearing, no acute distress, alert and awake Nutritional Appearance: well nourished Orientation/consciousness: oriented to person, oriented to place and oriented to time HENMT Ears: TM's normal bilaterally General nose exam: Normal nasal mucous membranes and turbinates present Eyes Conjunctivae: conjunctivae normal Sclerae: sclerae normal Pupils: Equal, round and reactive pupils present Neck Neck: Yes no lymphadenopathy and Yes no JVD Thyroid: Thyroid normal Carotids: no bruits Resp Effort & Inspection: normal respiratory effort and not tachypneic Auscultation: no crackles, no rales, no rhonchi and no wheezes Cardio Rate: regular rate Rhythm: regular rhythm Heart sounds: no murmurs and normal S1 and S2 GI Palpation (GI): Soft to palpation, nontender, no hepatomegaly and no splenomegaly Auscultation: normal bowel sounds Skin General skin exam: no rashes or lesions noted and dry skin Neuro General: oriented to person, oriented to place and oriented to time Cranial nerves: Yes Equal, round and reactive pupils present Speech: No Abnormal speech present Gait exam (Neuro): Normal gait present Motor exam (neuro): no tremor noted Extrem Right upper extremity: full ROM Left upper extremity: full ROM Right lower extremity: full ROM; no edema Left lower extremity: full ROM; no edema Psych Mental Status: mental status grossly normal Speech and movement: Normal speech and movement present Affect: normal affect Attitude: cooperative Thought process: Normal thought process present Assessment and Plan Assessment & Plan (1) URI (upper respiratory infection): Code(s): J06.9 - Acute upper respiratory infection, unspecified Qualifiers: URI type: unspecified viral URI Qualified Code(s): J06.9 - Acute upper respiratory infection, unspecified Plan: Patient's signs and symptoms are most consistent with a viral upper respiratory infection. No need for antibiotics at this time. Will send for x-ray to evaluate for a pulmonary infiltrate. Was swabbed for flu RSV and COVID. (2) Asthma: Code(s): J45.909 - Unspecified asthma, uncomplicated Qualifiers: Asthma complication type: with acute exacerbation Asthma persistence: intermittent Asthma severity: mild Qualified Code(s): J45.21 - Mild intermittent asthma with (acute) exacerbation Orders: Orders SARS-CoV2/FLU/RSV Today J06.9 - Acute upper respiratory infection, unspecified XR chest 2V Today J45.21 - Mild intermittent asthma with (acute) exacerbation Medications: New ibuprofen 600 mg PO TID PRN 21 tabs 0RF fever or pain 7 days J06.9 - Acute upper respiratory infection, unspecified prednisone see taper instructionsTake 3 tablets x2 days, 2 tablets x2 days, 1 tablet x2 days 10 mg PO DIRECTED 12 tabs 0RF 6 days J06.9 - Acute upper respiratory infection, unspecified Discontinued naproxen Discontinued Reason: Doctor's Order 500 mg PO BID PRN 30 tabs 0RF pain 14 days Coding Level of Care Code Est Pt Level 3 (18631) Diagnoses Viral upper respiratory tract infection J06.9 URI type: unspecified viral URI Mild intermittent asthma with acute exacerbation J45.21 Asthma complication type: with acute exacerbation Asthma persistence: intermittent Asthma severity: mild
== END 2023-03-11 10:15 | disposition home or self-care (01) ==
PROVIDERS: PCP Physician Assistant; Visit Provider Physician Assistant
DX: J06.9 Acute upper respiratory infection, unspecified (principal); J45.21 Mild intermittent asthma with (acute) exacerbation
CPT/HCPCS: 99213

== ENCOUNTER 2023-03-11 10:25 | Outpatient (REF) | payer OTHER, SELFPAY ==
--- NOTE | ~2023-03-11 | XR_ITS ---
EXAMINATION: XR CHEST CLINICAL INFORMATION: Mild intermittent asthma COMPARISON: None available. TECHNIQUE: 2 views of the chest were obtained. FINDINGS: No significant abnormality is noted involving the heart, lungs, mediastinum, bony thorax or soft tissues. XR/XR chest 2V IMPRESSION: Unremarkable examination.
[2023-03-11 11:24] LABS: Influenza A PCR NEGATIVE (Negative); Influenza B PCR NEGATIVE (Negative); Resp Syncy Virus RNA Qual PCR NEGATIVE (Negative); SARS COV2 PCR INHOUSE NEGATIVE (Negative)
== END 2023-03-11 10:26 | disposition home or self-care (01) ==
LOC: HO.XRAY 10:25
PROVIDERS: Visit Provider Physician Assistant
DX: J45.21 Mild intermittent asthma with (acute) exacerbation (principal); J06.9 Acute upper respiratory infection, unspecified; Z11.52 Encounter for screening for COVID-19
CPT/HCPCS: 0241U; 71046

== ENCOUNTER 2023-06-11 14:31 | Outpatient (AMB) | payer OTHER, SELFPAY ==
[2023-06-11 14:34] VITALS: BP 112/62; BMI 25.2
--- NOTE | 2023-06-11 14:34 | A.OFFVIS_ITS ---
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 Erector And Repairer Present (Marisa) Allergies levofloxacin [From LEVAQUIN] Allergy (Unknown, Verified 06/11/23 14:36) HIVES shellfish derived [SHELLFISH DERIVED] Allergy (Unknown, Verified 06/11/23 14:36) THROAT ITCHINESS/BURNING/SWELLING shrimp/shellfish Allergy (Intermediate, Uncoded 06/11/23 14:36) angioedema Medication List - Last Reconciled 06/11/23 by Mamta Luna CNM albuterol sulfate 2.5 mg (3 mL) inhalation Q4-6H PRN 30 days albuterol sulfate 90 mcg/actuation 1 inh inhalation QID 30 days albuterol sulfate 90 mcg/actuation 2 puffs inhalation Q6H PRN ibuprofen 600 mg PO TID PRN 7 days prednisone 10 mg PO DIRECTED 6 days Is last menstrual period known: Yes Last menstrual period: 06/06/23 Post menopausal: No HPI Annual HPI Details 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 No worries about STIs and declines testing she has in a monogamous relationship with her . 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 She tries to exercise and eat well and take care of herself. Last year or so she had a concern about a breast calcification that was found but that was deemed to be okay and she says she was told her next mammogram will be when she is 39 and doing the regular screening. She had a tubal ligation so she does not need to worry about and her last Pap smear was negative and she is not due for 1 today [facility] Medical History Physical exam Breast calcification, left Chronic diarrhea Left breast mass Chronic fatigue Mild intermittent asthma in adult without complication Surgical History History of left breast biopsy History of tubal ligation Family History Mother Hypertension Mental health disorder Father Prostate cancer Hypertension Paternal Grandfather Esophageal cancer Family/Other Substance use disorder Paternal Aunt Breast cancer Social History Housing: House Alcohol intake: current Alcohol intake frequency: a few times a month Alcohol type: beer Patient Tobacco Use Status: Never used Tobacco e-Cigarette/Vaping Use: Never Used Second Hand Smoke Exposure: No Substance Use Type: Marijuana service: No Current occupational status: employed Current occupation: [employer] Current occupational exposures/hazards: No Gender identity: Female Cognitive needs: No Hearing needs: No Vision needs: No Female Reproductive History Menstrual Age of Menarche: 10 Duration of menses: 3-5 days Date of last menstrual period: 06/06/23 control method: other (tubal ligation) Total pregnancies: 3 Full term: 3 Number of Living Children: 3 Date of last pap smear: 08/11/20 (negative) Date of Mammogram: 03/28/22 Physical Exam Vital Signs: Last Vital Signs BP 112/62 06/11/23 14:34 BMI result Body Mass Index 25.2 Const General: healthy appearing, comfortable, no acute distress, well developed and alert Nutritional Appearance: average body habitus Orientation/consciousness: patient oriented x3 Limitations: no limitations HEENT Head: Yes normocephalic Neck Neck: Yes normal visual inspection Chest Chest palpation & inspection: normal inspection of the chest Breast/axilla inspection: normal inspection of the breasts and normal inspection of the axillae Breast/axilla palpation: normal palpation of the breasts and normal palpation of the axillae Resp Effort & Inspection: normal respiratory effort GI Inspection: Yes normal to inspection, No Abdominal wall edema and No distended Palpation (GI): Soft to palpation and nontender Other: External exam within normal limits vulva pink and moist vagina pink and moist cervix multiparous long close thick mobile nontender no discharge uterus small midposition to anteverted mobile nontender adnexa nontender not enlarged good tone with Kegel instructed on doing Kegel's for sustained amount of time General: Yes bladder normal to palpation External Female Exam: normal external appearance and normal appearance of the urethra Speculum Exam - Vagina: normal appearance of the vagina, normal palpation and normal vaginal discharge Speculum Exam - Cervix: normal appearance of the cervix, normal palpation and nontender Bimanual exam- vagina & uterus: normal bimanual exam, normal palpation, uterine size normal, bladder normal to palpation, consistency normal, normal palpation, uterine mobility normal, uterine shape normal, No Cervical tenderness present, non-tender and no cervical motion tenderness Bimanual Exam- Adnexa, other: normal adnexae, no masses, normal and No adnexal tenderness Neuro General: patient oriented x3 Assessment & Plan Assessment & Plan (1) Well woman exam with routine gynecological exam: Comment: 08/10/20 pap= neg , w neg hpv. Code(s): Z01.419 - Encounter for gynecological examination (general) (routine) without abnormal findings (2) Cervical cancer screening: Comment: 2020 pap= neg/neg hpv Code(s): Z12.4 - Encounter for screening for malignant neoplasm of cervix (3) Breast cancer screening: Comment: Says all workups in past were negative and will start annual mammograms after age 40. Code(s): Z12.39 - Encounter for other screening for malignant neoplasm of breast (4) Breast calcification, left: Comment: Bx neg/has f/u mammogram today 03/28/22 Code(s): R92.1 - Mammographic calcification found on diagnostic imaging of breast Plan -----Discussed in this visit the following: healthy balanced diet, regular and consistent exercise, getting recommended health screens, doing the best she can for her particular health concerns, kegel exercises, pap smear screening and followup recommendations, mammography screening and SBE, normal changes in cycles in her life stage--- . She declined any STI testing as not needed her mammograms will be ordered next year by either myself or her primary care provider whoever she sees at the appropriate time. She is doing very well with self-care. 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 Coding Level of Care Code Est Pt Prev Care 18-39y(33277) Diagnoses Well woman exam with routine gynecological exam Z01.419 Cervical cancer screening Z12.4 Breast cancer screening Z12.39 Breast calcification, left R92.1
== END 2023-06-11 15:32 | disposition home or self-care (01) ==
LOC: HO.HWSM 14:31
PROVIDERS: PCP Physician Assistant; Visit Provider Advanced Practice Midwife
DX: Z01.419 Encounter for gynecological examination (general) (routine) without abnormal findings (principal); Z12.4 Encounter for screening for malignant neoplasm of cervix; Z12.39 Encounter for other screening for malignant neoplasm of breast; R92.1 Mammographic calcification found on diagnostic imaging of breast
CPT/HCPCS: 99395

== ENCOUNTER → 2023-06-11 14:31 | Outpatient (BNVA) | payer OTHER, SELFPAY | PROVIDERS: PCP Physician Assistant; Visit Provider Advanced Practice Midwife | DX: Z01.419 Encounter for gynecological examination (general) (routine) without abnormal findings (principal); R92.1 Mammographic calcification found on diagnostic imaging of breast | CPT/HCPCS: 99395 ==

== ENCOUNTER 2023-08-20 09:12 | Outpatient (AMB) | payer OTHER, SELFPAY ==
[2023-08-20 10:10] VITALS: BP 128/62; PULSE 65; TEMP 36.8; O2SAT 95; BMI 24.7
--- NOTE | 2023-08-20 10:10 | MHC.OFFWIV ---
Intake Vital Signs 08/20/23 10:10 Height 5 ft 4 in Weight 144 lb BMI 24.7 BP 128/62 Blood Pressure Location Lt brachial Position Sitting Pulse 65 Pulse Source Pulse Oximeter Temp 98.2 F Temp Source Oral Pulse Oximetry (%) 95 Oxygen Delivery Method Room Air Intake Visit Reasons: EP sore throat,runny nose and lost voice Intake Note: Pt presents to the office today for c/o sore throat, runny nose, headache, loss of voice. Pt states this all started Friday. Patient Tobacco Use Status: Never used Tobacco Allergies levofloxacin [From LEVAQUIN] Allergy (Unknown, Verified 08/20/23 10:12) HIVES shellfish derived [SHELLFISH DERIVED] Allergy (Unknown, Verified 08/20/23 10:12) THROAT ITCHINESS/BURNING/SWELLING shrimp/shellfish Allergy (Intermediate, Uncoded 08/20/23 10:12) angioedema HPI HPI Comments History of Present Illness Details She presents to office with lost voice Onset Friday + lost voice yesterday + coughing, headache, sore throat + sick contacts No medicine for it aside from Ibuprofen No fever or chills PFSH Medical History Physical exam Breast calcification, left Chronic diarrhea Left breast mass Chronic fatigue Mild intermittent asthma in adult without complication Surgical History History of left breast biopsy History of tubal ligation Family History Mother Hypertension Mental health disorder Father Prostate cancer Hypertension Paternal Grandfather Esophageal cancer Family/Other Substance use disorder Paternal Aunt Breast cancer Social History Housing: House Alcohol intake: current Alcohol intake frequency: a few times a month Alcohol type: beer Patient Tobacco Use Status: Never used Tobacco e-Cigarette/Vaping Use: Never Used Second Hand Smoke Exposure: No Substance Use Type: Marijuana service: No Current occupational status: employed Current occupation: [employer] Current occupational exposures/hazards: No Gender identity: Female Cognitive needs: No Hearing needs: No Vision needs: No Female Reproductive History Menstrual Age of Menarche: 10 Review of Systems Const Denies body aches, Reports fatigue, Denies fever(s) and Reports headache(s) ENT Denies dental pain, Denies dizziness, Denies otalgia, Reports headache(s), Reports nasal discharge, Denies sinus pressure, Reports sore throat, Denies throat swelling and Reports other (loss of voice) Card Denies chest pain and Denies dyspnea Resp Reports chest congestion, Reports cough and Denies dyspnea Neuro Denies dizziness and Reports headache(s) Endo Reports fatigue Aller/Immun Denies throat swelling Physical Exam Vital Signs: Last Vital Signs Temp 98.2 F 08/20/23 10:10 Pulse 65 08/20/23 10:10 BP 128/62 08/20/23 10:10 Pulse Ox 95 08/20/23 10:10 Oxygen Delivery Method Room Air 08/20/23 10:10 BMI result Body Mass Index 24.7 General: Non-toxic, NAD. Speaking full sentences. + hoarse voice Skin: Warm dry throughout Eye: EOMI, PERRLA Lymph: No lymphadenopathy HENT: Airway patent. Uvula midline. No pharyngeal erythema or edema. No SECOND OPERATOR. No exudates. Bilateral canals clear. TM non-erythematous, non-bulging. No TM perforation or hemotympanum noted. Respiratory: CTA bilaterally. No wheezes, rales or rhonchi Cardiac: RRR. No murmur MSK: Full ROM extremities. Neurology: A/O. No aphasia or facial droop. Gait without abnormality Psych: Good mood and affect Results AMB Rapid Strep AMB Rapid Strep Negative Last Edit by Sierra Arellano MA on 08/20/23 10:25 Results Reviewed Results Reviewed: Laboratory Last Values Strep Scn Rapid Clinic Negative 08/20/23 10:24 Assessment & Plan Assessment & Plan (1) Laryngitis: Code(s): J04.0 - Acute laryngitis Plan: Patient seen and evaluated. Strep negative and lungs CTA + flu exposure so flu/covid/rsv obtained and sent Symptomatic fluids, warm salt water, voice rest Prednisone with food, Avoid alcohol and nsaids Patient gave verbal understanding and had no additional questions or concerns at time of discharge All questions answered Plan 98 Orders: Orders AMB Rapid Strep Screen Today Z13.9 - Encounter for screening, unspecified SARS-CoV2/FLU/RSV Today J04.0 - Acute laryngitis Medications: New prednisone 40 mg (2 x 20 mg) PO DAILY 8 tabs 0RF benzonatate 200 mg PO BID-TID PRN 14 caps 0RF cough Coding Level of Care Code Est Pt Level 3 (25336) Diagnoses Laryngitis J04.0
== END 2023-08-20 11:07 | disposition home or self-care (01) ==
PROVIDERS: PCP Physician Assistant; Visit Provider Physician Assistant
DX: Z13.9 Encounter for screening, unspecified (principal); J04.0 Acute laryngitis
CPT/HCPCS: 87880; 99213

== ENCOUNTER 2023-08-20 13:36 | Outpatient (REF) | payer OTHER, SELFPAY ==
[2023-08-20 14:42] LABS: Influenza A PCR NEGATIVE (Negative); Influenza B PCR NEGATIVE (Negative); Resp Syncy Virus RNA Qual PCR NEGATIVE (Negative); SARS COV2 PCR INHOUSE NEGATIVE (Negative)
== END 2023-08-20 13:37 | disposition home or self-care (01) ==
LOC: HO.HMGCLNP 13:36
PROVIDERS: Visit Provider Physician Assistant
DX: Z11.52 Encounter for screening for COVID-19 (principal); J04.0 Acute laryngitis
CPT/HCPCS: 0241U

== ENCOUNTER 2023-09-22 14:47 | Outpatient (REF) | payer OTHER, SELFPAY ==
--- NOTE | ~2023-09-22 | MM_ITS ---
EXAMINATION: MM DIAGNOSTIC DIGITAL BREAST TOMOSYNTHESIS, BILATERAL CLINICAL INFORMATION: Recommended short interval follow-up magnification mammography of the left breast and annual screening of the right breast. COMPARISON: Mammography: This study is compared with multiple prior mammograms dating back to 2020. TECHNIQUE: Digital breast tomosynthesis is performed in both the craniocaudal and mediolateral oblique views along with computer-aided detection (CAD). Synthesized 2D images are generated from the tomosynthesis. FINDINGS: There are scattered areas of fibroglandular density (ACR BI-RADS breast composition Category b). There are no significant masses, abnormal calcifications, or other abnormalities in either breast. There is a tissue marker in the upper outer quadrant of the left breast from prior benign percutaneous biopsy. There are surrounding residual punctate benign calcifications unchanged from prior mammograms. MM/MM tomosynthesis diagnostic BI IMPRESSION: No mammographic signs of malignancy ASSESSMENT: BI-RADS BI-RADS 2 - Benign Findings RECOMMENDATION: 1 year F/U Results were provided to the patient at time of visit by the technologist. This patient's information was entered into a reminder system with a target due date for their next mammogram.
== END 2023-09-22 14:48 | disposition home or self-care (01) ==
LOC: HO.MAMMO 14:47
PROVIDERS: PCP Physician Assistant; Visit Provider Internal Medicine
DX: R92.1 Mammographic calcification found on diagnostic imaging of breast (principal)
CPT/HCPCS: 77062; 77066

== ENCOUNTER → 2023-09-22 15:00 | Outpatient (BNV) | payer OTHER, SELFPAY | PROVIDERS: PCP Physician Assistant; Visit Provider Radiology Diagnostic Radiology | DX: R92.1 Mammographic calcification found on diagnostic imaging of breast (principal) | CPT/HCPCS: 77062; 77066 ==

== ENCOUNTER 2023-12-19 10:01 | Outpatient (AMB) | payer OTHER, SELFPAY ==
--- NOTE | 2023-12-19 10:33 | MHC.OFFWIV ---
Intake Vital Signs 12/19/23 10:34 Height 5 ft 4 in Weight 138 lb BMI 23.7 BP 118/80 Blood Pressure Location Rt brachial Position Standing Pulse 76 Pulse Source Pulse Oximeter Temp 98.3 F Temp Source Oral Pulse Oximetry (%) 98 Oxygen Delivery Method Room Air Intake Visit Reasons: lower back and hip pain Intake Note: pt here c/o lower back and hip pain, started 9:30 this morning, bent to grab dog and felt sharp pain and heard something pop in back Patient Tobacco Use Status: Never used Tobacco Allergies levofloxacin [From LEVAQUIN] Allergy (Unknown, Verified 12/19/23 10:33) HIVES shellfish derived [SHELLFISH DERIVED] Allergy (Unknown, Verified 12/19/23 10:33) THROAT ITCHINESS/BURNING/SWELLING shrimp/shellfish Allergy (Intermediate, Uncoded 12/19/23 10:33) angioedema Medication List - Last Reconciled 12/19/23 by Elizabeth Bush MD albuterol sulfate 2.5 mg (3 mL) inhalation Q4-6H PRN 30 days albuterol sulfate 90 mcg/actuation 1 inh inhalation QID 30 days ibuprofen 600 mg PO TID PRN 7 days Do you need a note to return to daycare/school/sports/work: No HPI lower back and hip pain HPI Details Patient is a 38-year-old female who got stung by a bee yesterday and was limping favoring left leg all day This morning 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 with food for a week She is to stop ibuprofen while on diclofenac And muscle relaxer up to 3 times a day Patient was notified that muscle relaxer will make her very tired. Follow up with primary care [facility]LY [facility] Medical History Physical exam Breast calcification, left Chronic diarrhea Left breast mass Chronic fatigue Mild intermittent asthma in adult without complication Surgical History History of left breast biopsy History of tubal ligation Family History Mother Hypertension Mental health disorder Father Prostate cancer Hypertension Paternal Grandfather Esophageal cancer Family/Other Substance use disorder Paternal Aunt Breast cancer Social History Housing: House Alcohol intake: current Alcohol intake frequency: a few times a month Alcohol type: beer Patient Tobacco Use Status: Never used Tobacco e-Cigarette/Vaping Use: Never Used Second Hand Smoke Exposure: No Substance Use Type: Marijuana service: No Current occupational status: employed Current occupation: [employer] Current occupational exposures/hazards: No Gender identity: Female Cognitive needs: No Hearing needs: No Vision needs: No Female Reproductive History Menstrual Age of Menarche: 10 Review of Systems Const All systems reviewed & are unremarkable except as noted in HPI and below Physical Exam Vital Signs: Last Vital Signs Temp 98.3 F 12/19/23 10:34 Pulse 76 12/19/23 10:34 BP 118/80 12/19/23 10:34 Pulse Ox 98 12/19/23 10:34 Oxygen Delivery Method Room Air 12/19/23 10:34 BMI result Body Mass Index 23.7 Const General: no acute distress Orientation/consciousness: patient oriented x3 Eyes General: appearance normal, both eyes and all related structures Resp Effort & Inspection: normal respiratory effort and able to speak in complete sentences Auscultation: clear to auscultation bilaterally Back/Spine/Pelvis Back/spine/pelvis image: 1. Paraspinal muscle spasm causing limited range of motion, hip and knee joint intact Neuro General: patient oriented x3 Extrem Ankle/foot/toe images: 1. Swelling secondary to bee sting Psych Mental Status: mental status grossly normal Assessment & Plan Assessment & Plan (1) Lumbar paraspinal muscle spasm: Code(s): M62.830 - Muscle spasm of back (2) Bee sting: Code(s): T63.441A - Toxic effect of venom of bees, accidental (unintentional), initial encounter Qualifiers: Encounter type: initial encounter Injury intent: accidental or unintentional Qualified Code(s): T63.441A - Toxic effect of venom of bees, accidental (unintentional), initial encounter Plan Patient is a 38-year-old female who got stung by a bee yesterday and was limping favoring left leg all day This morning 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 with food for a week She is to stop ibuprofen while on diclofenac And muscle relaxer up to 3 times a day Patient was notified that muscle relaxer will make her very tired. Follow up with primary care Medications: New prednisone 20 mg PO DAILY 5 tabs 0RF 5 days diclofenac sodium Do not take it with ibuprofen 75 mg PO BID 14 tabs 0RF pain 7 days cyclobenzaprine 10 mg PO TID 21 tabs 0RF muscle spasm 7 days Coding Level of Care Code Est Pt Level 4 (09119) Diagnoses Lumbar paraspinal muscle spasm M62.830 Bee sting, accidental or unintentional, initial encounter T63.441A Encounter type: initial encounter Injury intent: accidental or unintentional
[2023-12-19 10:34] VITALS: BP 118/80; PULSE 76; TEMP 36.8; O2SAT 98; BMI 23.7
== END 2023-12-19 10:58 | disposition home or self-care (01) ==
PROVIDERS: PCP Physician Assistant; Visit Provider Internal Medicine
DX: M62.830 Muscle spasm of back (principal); T63.441A Toxic effect of venom of bees, accidental (unintentional), initial encounter
CPT/HCPCS: 99214

== ENCOUNTER 2023-12-22 11:32 | Outpatient (AMB) | payer OTHER, SELFPAY ==
[2023-12-22 11:37] VITALS: BP 110/68; PULSE 64; O2SAT 99; BMI 24.1
--- NOTE | 2023-12-22 11:37 | MHC.PC.OV ---
Vital Signs 12/22/23 11:37 Height 5 ft 4 in Weight 140 lb 8 oz BMI 24.1 BP 110/68 Blood Pressure Location Lt brachial Position Sitting Pulse 64 Pulse Source Pulse Oximeter Pulse Oximetry (%) 99 Oxygen Delivery Method Room Air Intake Visit Reasons: annual exam Intake Note: Patient is here today for a physical. 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 Accompanied by: Self / Same As Patient Allergies levofloxacin [From LEVAQUIN] Allergy (Unknown, Verified 12/22/23 11:41) HIVES shellfish derived [SHELLFISH DERIVED] Allergy (Unknown, Verified 12/22/23 11:41) THROAT ITCHINESS/BURNING/SWELLING shrimp/shellfish Allergy (Intermediate, Uncoded 12/22/23 11:41) angioedema Medication List - Last Reconciled 12/22/23 by Matthew Lopez PA-C albuterol sulfate 2.5 mg (3 mL) inhalation Q4-6H PRN 30 days albuterol sulfate 90 mcg/actuation 1 inh inhalation QID 30 days albuterol sulfate 2.5 mg (3 mL) inhalation Q4-6H PRN 30 days albuterol sulfate 90 mcg/actuation 1 inh inhalation QID 30 days cyclobenzaprine 10 mg PO TID 7 days diclofenac sodium 75 mg PO BID 7 days ibuprofen 600 mg PO TID PRN 7 days prednisone 20 mg PO DAILY 5 days Tobacco use date assessed: 03/11/23 Dental Screening Dental Screen Date: 03/11/23 [facility] annual exam HPI Details Patient is a 38-year-old female here today for routine annual physical. Patient's past medical history significant for mild persistent asthma [place]--> recently seen at urgent care for an acute bee sting, was seen at urgent care was given NSAID and prednisone. Her swelling in her foot has resolved. . Also had a mid back pain after reaching down picking up her cat. She reports feeling very sharp pain over right flank/rib area. She has been using anti-inflammatories and resting which has been helpful though still feels the pain from time to time with stretches of her torso. Asthma: Has been well controlled with only p.r.n. use of her albuterol inhaler. Denies any recent exacerbations of her asthma. She reports she has stopped smoking marijuana over the last 2 weeks. Vaccines: Up-to-date with COVID vaccine, declines flu vacc, considering pneumonia vaccine. considering Tdap. 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 [facility] Medical History (Updated 12/23/23 @ 07:42 by Matthew Lopez PA-C) Physical exam Breast calcification, left Left breast mass Surgical History History of left breast biopsy History of tubal ligation Family History Mother Hypertension Mental health disorder Father Prostate cancer Hypertension Paternal Grandfather Esophageal cancer Family/Other Substance use disorder Paternal Aunt Breast cancer Social History Housing: House Alcohol intake: current Alcohol intake frequency: a few times a month Alcohol type: beer Patient Tobacco Use Status: Never used Tobacco e-Cigarette/Vaping Use: Never Used Second Hand Smoke Exposure: No Substance Use Type: Marijuana service: No Current occupational status: employed Current occupation: [employer] [place] Current occupational exposures/hazards: No Gender identity: Female Cognitive needs: No Hearing needs: No Vision needs: No Female Reproductive History Menstrual Age of Menarche: 10 Questionnaire PHQ-9 Over the last 2 weeks, how often have you been bothered by any of the following problems? 1. Little interest or pleasure in doing things: not at all 2. Feeling down, depressed, or hopeless: not at all 3. Trouble falling or staying asleep, or sleeping too much: not at all 4. Feeling tired or having little energy: not at all 5. Poor appetite or overeating: not at all 6. Feeling bad about yourself - or that you are a failure or have let yourself or your family down: not at all 7. Trouble concentrating on things, such as reading the newspaper or watching television: not at all 8. Moving or speaking so slowly that other people could have noticed. Or the opposite - being so fidgety or restless that you have been moving around a lot more than usual: not at all 9. Thoughts that you would be better off or of hurting yourself in some way: not at all Total score: 0 Depression Screening Interpretation: Negative Depression Screening Done: Yes 12437 - PHQ-9 Billing: Yes Source: Developed by Drs. Ronnell Lopez, Carissa Mujica, Tad Burrell and colleagues, with an educational brandon from [employer]. Thrive Questionnaire Date Thrive assessed: 12/10/22 SHANIA-7 AMB Questionnaire SHANIA-7 Date SHANIA - 7 assessed: 12/10/22 Feeling nervous, anxious, or on edge: 0 = Not at all Not being able to stop or control worryin = Not at all Worrying too much about different things: 0 = Not at all Trouble relaxin = Not at all Being so restless that it is hard to sit still: 0 = Not at all Becoming easily annoyed or irritable: 0 = Not at all Feeling afraid as if something awful might happen: 0 = Not at all Total SHANIA-7 score (0-4 normal; 5-9 mild; 10-14 moderate; 15-21 severe): 0 Source: Developed by Drs. Ronnell Lopez, Carissa Mujica, Tad Burrell and colleagues, with an educational brandon from [employer]. SHANIA-7 Assessment Billing SHANIA-7 Assessment Tool: SHANIA-7 Assessment 83037 Review of Systems Const Denies body aches, Denies chills, Denies excessive sweating, Denies fatigue, Denies fever(s) and Denies headache(s) Eyes Denies blurry vision ENT Denies dysphagia, Denies vertigo, Denies dizziness, Denies headache(s), Denies hearing loss and Denies tinnitus Card Denies chest pain, Denies chest pain with activity, Denies syncope, Denies irregular heart rhythm and Denies dyspnea Resp Denies chest congestion, Denies cough, Denies hemoptysis, Denies dyspnea and Denies wheezing GI Denies abdominal pain, Denies melena, Denies hematochezia, Denies coffee ground emesis, Denies dysphagia, Denies diarrhea, Denies nausea and Denies vomiting Denies urinary frequency, Denies dysuria, Denies urinary hesitancy and Denies urinary urgency Musc Denies arthralgias, Denies limited range of motion, Denies muscle cramps and Denies muscle weakness Skin/Breast Denies rash and Denies skin ulcer Neuro Denies Abnormal speech present, Denies confusion, Denies vertigo, Denies dizziness, Denies syncope, Denies headache(s), Denies memory loss and Denies seizure-like activity Psych Denies anxiety, Denies confusion, Denies depression, Denies memory loss, Denies panic attacks and Denies paranoia Endo Denies excessive sweating, Denies fatigue, Denies flushing, Denies polydipsia and Denies polyuria Aller/Immun Denies wheezing Physical exam (Primary Care) Vital Signs: Last Vital Signs Pulse 64 12/22/23 11:37 BP 110/68 12/22/23 11:37 Pulse Ox 99 12/22/23 11:37 Oxygen Delivery Method Room Air 12/22/23 11:37 BMI result Body Mass Index 24.1 Tobacco/Smoking Status: Tobacco use Status Tobacco use date assessed 03/11/23 12/22/23 11:42 Patient Tobacco Use Status Never used Tobacco 12/22/23 11:42 e-Cigarette/Vaping Use Never Used 12/22/23 11:42 Depression Screening Interpretation: Negative Thrive Assessment: Date of Thrive Assessment Date Thrive assessed 12/10/22 12/22/23 11:42 Const General: cooperative, comfortable, no acute distress, alert and awake; No confusion Orientation/consciousness: oriented to person, oriented to place, patient oriented x3 and No confusion HENMT Head: Yes normocephalic Ears: external ears normal and TM's normal bilaterally Face and sinus: No sinus tenderness Mouth: Normal oral and palatal mucosa present and tongue normal Teeth and gingiva: dentition normal and gingiva normal Throat: Yes posterior oropharynx normal, Yes tonsils normal and Yes uvula midline Eyes Conjunctivae: conjunctivae normal Sclerae: sclerae normal Pupils: Equal, round and reactive pupils present EOM: EOMs intact bilaterally Direct Ophthalmoscopy: No no photophobia Neck Neck: Yes no lymphadenopathy, No tender and Yes no JVD Thyroid: Thyroid normal Carotids: no bruits Chest Chest palpation & inspection: no tenderness Resp Effort & Inspection: normal respiratory effort, no audible wheezes, not labored and no stridor Auscultation: no crackles, no rales, no rhonchi and no wheezes Cardio Jugular venous distension: no JVD Rate: regular rate, not bradycardic and not tachycardic Rhythm: regular rhythm Bruits: no carotid bruits Peripheral pulses: Peripheral pulses 2+ throughout GI Inspection: Yes normal to inspection, No abdominal wall ecchymosis and No visible herniation Palpation (GI): Soft to palpation, nontender, no guarding, not rigid and No hepatosplenomegaly present Auscultation: normoactive bowel sounds General: Yes no CVA tenderness Back/Spine/Pelvis Back: no CVA tenderness and No back tenderness Cervical Spine: cervical ROM normal Thoracic/Lumbar Spine: thoracic and lumbar spine normal to inspection, straight leg raise negative bilaterally, No thoraco-lumbar ROM limited and No lumbar spinal tenderness Skin Lesions: no lesions Rashes: no rashes Wounds: no wounds Neuro General: oriented to person, oriented to place, patient oriented x3, CN's II-XI intact bilaterally and No confusion Cranial nerves: Yes Equal, round and reactive pupils present and Yes Normal accommodation reflex present Cognition (Neuro): normal cognition Speech: No Abnormal speech present Gait exam (Neuro): Normal gait present Motor exam (neuro): 5/5 motor strength present throughout Extrem Right upper extremity: full ROM; no cyanosis Left upper extremity: full ROM; no cyanosis Right lower extremity: no edema Left lower extremity: no edema Psych Appearance: grossly normal Mental Status: mental status grossly normal Affect: normal affect Attitude: cooperative Thought process: Normal thought process present Assessment and Plan Assessment & Plan (1) Annual physical exam: Code(s): Z00.00 - Encounter for general adult medical examination without abnormal findings (2) Asthma: Code(s): J45.909 - Unspecified asthma, uncomplicated Qualifiers: Asthma complication type: with acute exacerbation Asthma persistence: intermittent Asthma severity: mild Qualified Code(s): J45.21 - Mild intermittent asthma with (acute) exacerbation Plan: Reports her asthma has been fairly well controlled. Rarely has to use her albuterol inhaler or nebulizer. Denies any nighttime awakenings with asthma symptoms were recent exacerbations (3) Right-sided thoracic back pain: Code(s): M54.6 - Pain in thoracic spine Qualifiers: Chronicity: acute Qualified Code(s): M54.6 - Pain in thoracic spine Plan: Recently had an acute right-sided thoracic pain. Was seen at urgent was given NSAIDs and muscle relaxers which have been helpful. She reports the pain has been getting better though still noticeable with certain stretches offer torso. Continue to use NSAIDs and muscle relaxers as needed for pain. Will call back to the office if she would like to do formal physical therapy Otherwise denies any urinary Orders: Orders XR ribs RT 2V 12/22/23 M54.6 - Pain in thoracic spine Comprehensive Potter. Panel Fast 12/22/23 Z13.1 - Encounter for screening for diabetes mellitus Complete Blood Count no Diff 12/22/23 J45.21 - Mild intermittent asthma with (acute) exacerbation XR thoracic spine 3V 12/22/23 M54.6 - Pain in thoracic spine Medications: New cyclobenzaprine 5 mg PO TID 12 tabs 0RF muscle spasm 4 days M54.6 - Pain in thoracic spine Refilled albuterol sulfate 2.5 mg (3 mL) inhalation Q4-6H PRN 180 mL 1RF shortness of breath or wheezing 30 days J45.21 - Mild intermittent asthma with (acute) exacerbation albuterol sulfate 90 mcg/actuation 1 inh inhalation QID 8.5 grams 3RF 30 days J45.21 - Mild intermittent asthma with (acute) exacerbation Discontinued cyclobenzaprine Discontinued Reason: Duplicate 10 mg PO TID 7 days 21 tabs 0RF muscle spasm Patient Instructions: Goal: Continue to control asthma Barriers: Adherence to smoking cessation Coding Level of Care Code Est Pt Prev Care 18-39y(89590) Diagnoses Annual physical exam Z00.00 Mild intermittent asthma with acute exacerbation J45.21 Asthma complication type: with acute exacerbation Asthma persistence: intermittent Asthma severity: mild Acute right-sided thoracic back pain M54.6 Chronicity: acute Additional Codes SHANIA-7 Assessment Billing - SHANIA-7 Assessment Tool: SHANIA-7 Assessment 17013 ([id number])
== END 2023-12-22 12:05 | disposition home or self-care (01) ==
PROVIDERS: PCP Physician Assistant; Visit Provider Physician Assistant
DX: Z00.00 Encounter for general adult medical examination without abnormal findings (principal); J45.21 Mild intermittent asthma with (acute) exacerbation; M54.6 Pain in thoracic spine
CPT/HCPCS: 99395

== ENCOUNTER 2024-07-01 10:32 | Outpatient (REF) | payer OTHER, SELFPAY ==
[2024-07-01 13:53] LABS: Influenza A PCR NEGATIVE (Negative); Influenza B PCR POSITIVE (Negative); Resp Syncy Virus RNA Qual PCR NEGATIVE (Negative); SARS COV2 PCR INHOUSE NEGATIVE (Negative)
== END 2024-07-01 10:33 | disposition home or self-care (01) ==
LOC: HO.LAB 10:32
PROVIDERS: PCP Physician Assistant; Visit Provider Physician Assistant
DX: J06.9 Acute upper respiratory infection, unspecified (principal); R09.89 Other specified symptoms and signs involving the circulatory and respiratory systems
CPT/HCPCS: 0241U; 99212

== ENCOUNTER 2024-09-23 23:41 | Emergency (ER) | payer OTHER, SELFPAY ==
--- NOTE | ~2024-09-23 | XR_ITS ---
CLINICAL HISTORY: Fall; pain 2 view right knee Comparison: None Findings: Bones intact. No dislocations. No arthritic change. No joint effusion. No radiopaque foreign body. IMPRESSION: 1. No acute findings. This document has been electronically signed by: Shad Huertas MD on 09/24/2024 00:49:24
[2024-09-23 23:45] VITALS: BP 111/58; PULSE 80; RESP 14; TEMP 36.3; O2SAT 99; BMI 25.7
[2024-09-24 00:05] LABS: MANUAL DIFF FLAG NO
[2024-09-24 00:07] LABS: Basophils Absolute Auto 0.1 X10*3/uL (0.0-0.2); Basophils Percent Auto 0.6 % (0-2); Eosinophils Absolute Auto 0.6 X10*3/uL (0.0-0.4); Eosinophils Percent Auto 7.3 % (0-4); Hematocrit 36.8 % (37.0-47.0); Hemoglobin 11.9 g/dl (12.0-16.0); Imm Gran Abs Auto 0.02 X10*3/uL (0.00-0.03); Imm Gran Pct Auto 0.2 % (0.0-0.4); Lymphocytes Absolute Auto 2.9 X10*3/uL (1.2-4.9); Lymphocytes Percent Auto 33.6 % (20-40); Mean Corpuscular HGB Conc 32.3 g/dl (31.0-35.0); Mean Corpuscular Volume 83.4 fL (80.0-98.0); Mean Platelet Volume 10.6 fL (9.4-12.3); Monocytes Absolute Auto 0.5 X10*3/uL (0.1-1.2); Monocytes Percent Auto 5.6 % (2-11); Neutrophils Absolute Auto 4.5 x10*3/uL (2.0-8.3); Neutrophils Percent Auto 52.7 % (45-73); Platelet Count 228 X10*3/uL (160-400); Red Blood Count 4.41 X10*6/uL (4.20-5.50); Red Cell Distribution Width 13.1 % (11.0-16.0); White Blood Count 8.6 X10*3/uL (4.8-10.8)
[2024-09-24 00:19] LABS: Alanine Aminotransferase 31 U/L (0-31); Albumin Level 4.4 g/dL (3.5-5.0); Alkaline Phosphatase 44 U/L (39-117); Anion Gap 13 (12-20); Aspartate Amino Transferase 23 U/L (5-31); Bilirubin Total 0.2 mg/dL (0.0-1.0); Blood Urea Nitrogen 21 mg/dL (9-16); Calcium 9.3 mg/dL (8.4-10.2); Carbon Dioxide 25 mmol/L (22-29); Chloride 107 mmol/L (96-108); Creatinine Clr Calc Pharmacy 73.8; Estimated Glomerular Filt Rate > 60; Glucose Random 129 mg/dL (60-115); Potassium 4.1 mmol/L (3.3-5.1); Sodium 141 mmol/L (135-145); Total Protein 7.4 g/dL (6.5-8.0)
--- NOTE | 2024-09-24 01:01 | ED_ITS ---
HPI - General Adult General Chief complaint: Fall Stated complaint: fell on floor face down/broke tooth/passed out Time Seen by Provider: 09/24/24 01:00 History of Present Illness ED Provider: Damian Soto MD HPI narrative: 39-year-old female who saw the sight of blood on her 's nose and syncopized shortly after this she fell down striking right knee on the floor and her mouth she broke 1 of her teeth which they have kept at home. She denies head strike or loss of consciousness. No other injury Related Data Previous Rx's ?Medication ?Instructions ?Recorded albuterol sulfate 2.5 mg/3 mL 2.5 mg (3 mL) inhalation Q4-6H PRN 02/16/24 (0.083 %) solution for nebulization shortness of breath or wheezing 30 days #180 mL albuterol sulfate 90 mcg/actuation 1 inh inhalation QID 30 days #8.5 04/20/24 aerosol inhaler grams oseltamivir 75 mg capsule (Tamiflu) 75 mg PO Q12H 5 days #10 caps 07/01/24 Allergies Allergy/AdvReac Type Severity Reaction Status Date / Time levofloxacin [From LEVAQUIN] Allergy Unknown HIVES Verified 09/23/24 23:48 shellfish derived Allergy Unknown THROAT Verified 09/23/24 23:48 [SHELLFISH DERIVED] ITCHINESS/BURNING/SWELLING shrimp/shellfish Allergy Intermediate angioedema Uncoded 09/23/24 23:48 PMFSH Past Medical History Medical History (Updated 09/24/24 @ 01:16 by Damian Soto MD) Physical exam Breast calcification, left Left breast mass Surgical History History of left breast biopsy History of tubal ligation Family History Family History Mother Hypertension Mental health disorder Father Prostate cancer Hypertension Paternal Grandfather Esophageal cancer Family/Other Substance use disorder Paternal Aunt Breast cancer Social History Social History Housing: House Alcohol intake: current Alcohol intake frequency: a few times a month Alcohol type: beer Patient Tobacco Use Status: Never used Tobacco e-Cigarette/Vaping Use: Never Used Second Hand Smoke Exposure: No Substance Use Type: Marijuana Advance Directives: No Advance Directives Information Provided: Yes Do you have a plan to hurt others: No Plan service: No Current occupational status: employed Current occupation: [employer] Current occupational exposures/hazards: No Gender identity: Female Cognitive needs: No Hearing needs: No Vision needs: No Physical Exam ED Vital Signs: Vital Signs - 24 hr 09/23/24 23:45 Temperature 97.4 F Pulse Rate 80 Respiratory Rate 14 Blood Pressure 111/58 L Pulse Oximetry 99 Oxygen Delivery Method Room Air BMI result Body Mass Index 25.7 Const Other: EXAM: Gen: Alert, awake, well appearing, well hydrated. Head: Atraumatic Eyes: Anicteric, Normal conjunctiva. ENT: Moist mucosa, no pallor. ?Instability of the maxilla or facial bones. She does have a broken tooth Neck: Supple. Respiratory: Breathing comfortably, No distress.Clear to auscultation bilaterally, symmetric chest expansion, No wheeze, rales, ronchi. Cardiovascular: Regular rate and rhythm. No murmurs or rub. Well perfused periphery, warm extremities. No edema. ? Abdominal: Soft, no objective distension. No palpable masses or obvious organomegaly. No focal tenderness, no guarding, no rebound tenderness or other peritoneal findings. : No flank tenderness. Neuro: Alert. Gross movement of all extremities intact. ? Vital signs: See flowsheet [facility] Teeth image: 2 1. Broken in half exposed root Medical Decision Making Medical Decision Making [facility] Narrative: 39-year-old female with clear vasovagal syncope low mechanism fall. She does unfortunately have a dental fracture as described above she will need close follow up with her dentist. Knee contusion stable on examination with neurovascularly intact in right lower extremity no other injuries identified Lab Data [facility] Lab Attestation statement: I reviewed the patient's lab results. 09/23/24 23:58 09/23/24 23:58 Labs: Lab Results 09/23/24 Range/Units 23:58 WBC 8.6 (4.8-10.8) X10*3/uL RBC 4.41 (4.20-5.50) X10*6/uL Hgb 11.9 L (12.0-16.0) g/dl Hct 36.8 L (37.0-47.0) % MCV 83.4 (80.0-98.0) fL MCH 27.0 (27.0-33.0) pg MCHC 32.3 (31.0-35.0) g/dl RDW 13.1 (11.0-16.0) % Plt Count 228 (160-400) X10*3/uL MPV 10.6 (9.4-12.3) fL Immature Gran % (Auto) 0.2 (0.0-0.4) % Neut % (Auto) 52.7 (45-73) % Lymph % (Auto) 33.6 (20-40) % [place] % (Auto) 5.6 (2-11) % Eos % (Auto) 7.3 H (0-4) % Baso % (Auto) 0.6 (0-2) % Lymph # (Auto) 2.9 (1.2-4.9) X10*3/uL [place] # (Auto) 0.5 (0.1-1.2) X10*3/uL Eos # (Auto) 0.6 H (0.0-0.4) X10*3/uL Baso # (Auto) 0.1 (0.0-0.2) X10*3/uL Abs Immat Gran (auto) 0.02 (0.00-0.03) X10*3/uL Absolute Neuts (auto) 4.5 (2.0-8.3) x10*3/uL Absolute Nucleated RBC 0.000 (0.0-0.012) X10*3/uL Nucleated RBC % (auto) 0.0 (0.0-0.2) /100WBC Sodium 141 (135-145) mmol/L Potassium 4.1 (3.3-5.1) mmol/L Chloride 107 (96-108) mmol/L Carbon Dioxide 25 (22-29) mmol/L Anion Gap 13 (12-20) BUN 21 H (9-16) mg/dL Creatinine 0.96 (0.5-1.4) mg/dL Estim Creat Clear Calc 73.8 Estimated GFR > 60 Random Glucose 129 H (60-115) mg/dL Calcium 9.3 (8.4-10.2) mg/dL Total Bilirubin 0.2 (0.0-1.0) mg/dL AST 23 (5-31) U/L ALT 31 (0-31) U/L Alkaline Phosphatase 44 (39-117) U/L Total Protein 7.4 (6.5-8.0) g/dL Albumin 4.4 (3.5-5.0) g/dL Discharge Plan Discharge Clinical Impression: Broken teeth Patient Disposition: Home, Self-Care Instructions: Acute Dental Trauma (ED) Additional Instructions: _ DISCHARGE DIAGNOSES: Dental fracture tooth Vasovagal syncope HISTORY OF PRESENTATION: ?Fall after seeing blood strike the right knee and a dental fracture EMERGENCY DEPARTMENT COURSE,TESTS, TREATMENTS: While in the ED today you had an x-ray which showed no fractures and basic lab work which was reassuring DISCHARGE MEDICATIONS: ?[We have made no changes to your regular medication regimen] you can get [id number] medications for pain including ibuprofen Tylenol as well as or other anesthetics for dental injuries such as benzocaine ask the pharmacist if you have questions FOLLOW-UP: ?Call your primary or general physician soon as possible to discuss your symptoms, your ED visit and to discuss follow up plans Call your dentist right away keep the fracture dental fragment in milk make sure your dentist's office is aware that you have fractured your tooth with a nerve urgent basis INSTRUCTIONS ?& RETURN PRECAUTIONS: If any symptoms change first call your primary physician, if it is after-hours your primary doctors office should have a provider application release manager you can speak with. If the symptoms are severe or very concerning to you then call 911 or return to the ED. Damian Soto MD Emergency Physician [facility] Prescriptions: No Action albuterol sulfate 2.5 mg /3 mL (0.083 %) solution for nebulization 2.5 mg inhalation Q4-6H PRN (Reason: shortness of breath or wheezing) 30 Days Qty: 180 1RF albuterol sulfate 90 mcg/actuation HFA aerosol inhaler 1 inh inhalation QID 30 Days Qty: 8.5 3RF oseltamivir [Tamiflu] 75 mg capsule 75 mg PO Q12H 5 Days Qty: 10 0RF Print Language: Gambian
--- NOTE | 2024-09-24 01:12 | PC.NURSE ---
assumed care of pt at 0110. PT a/o x4, resting quietly in no acute distress. PT reports that her was bleeding and pt fainted after seeing it. PT states that she fainted forward hitting her face from standing position. Shes endorsing pain of the nasal and oral region. minor lip swelling noted, no active bleeding.
[2024-09-24 01:32] VITALS: BP 102/65; PULSE 95; RESP 20; TEMP 36.9; O2SAT 96
[2024-09-24 01:50] VITALS: BP 102/65; PULSE 95; RESP 20; TEMP 36.9; O2SAT 96
== END 2024-09-24 01:52 | disposition home or self-care (01) ==
PROVIDERS: Emergency Provider Emergency Medicine; PCP Physician Assistant
DX: R55 Syncope and collapse (principal); S02.5XXA Fracture of tooth (traumatic), initial encounter for closed fracture; S89.91XA Unspecified injury of right lower leg, initial encounter; W18.30XA Fall on same level, unspecified, initial encounter; Y93.9 Activity, unspecified; Y92.9 Unspecified place or not applicable; Y99.9 Unspecified external cause status
CPT/HCPCS: 36415; 73560; 80053; 85025; 99283

== ENCOUNTER → 2024-09-23 23:59 | Outpatient (BNV) | payer SELFPAY | PROVIDERS: Emergency Provider Emergency Medicine; PCP Physician Assistant; Visit Provider Radiology Diagnostic Radiology | DX: M25.561 Pain in right knee (principal); W19.XXXA Unspecified fall, initial encounter | CPT/HCPCS: 73560 ==

== ENCOUNTER 2024-12-03 13:46 | Outpatient (AMB) | payer OTHER, SELFPAY ==
[2024-12-03 13:47] VITALS: BP 100/62; PULSE 89; TEMP 36.8; O2SAT 96; BMI 24.9
--- NOTE | 2024-12-03 13:47 | AM.OFFWIN_ITS ---
Intake Vital Signs 12/03/24 13:47 Height 5 ft 4 in Weight 145 lb BMI 24.9 BP 100/62 Blood Pressure Location Lt brachial Position Sitting Pulse 89 Pulse Source Pulse Oximeter Temp 98.3 F Temp Source Oral Pulse Oximetry (%) 96 Oxygen Delivery Method Room Air Intake Visit Reasons: EP light headache/pressure~chest/not feeling well Intake Note: Patient states chest heaviness since yesterday without a cough Patient Tobacco Use Status: Never used Tobacco Is last menstrual period known: Yes Last menstrual period: 11/16/24 Post menopausal: No Patient : No Allergies levofloxacin (From LEVAQUIN) Allergy (Unknown, Verified 12/03/24 13:51) HIVES shellfish derived (SHELLFISH DERIVED) Allergy (Unknown, Verified 12/03/24 13:51) THROAT ITCHINESS/BURNING/SWELLING shrimp/shellfish Allergy (Intermediate, Uncoded 09/23/24 23:48) angioedema HPI HPI Comments History of Present Illness Details This is a 39-year-old female with no stated past medical history presenting for evaluation of heaviness in her chest and lightheadedness. Patient states she had a dental extraction on Friday and has been taking amoxicillin since that time. Patient states at 9:00 a.m. this morning she developed heaviness in her chest that has been constant and she describes having palpitations, my heart is fast and I feel it . Patient states prior to coming to the clinic she recorded her heart rate as 135 beats per minute on her [employer] w atch. Patient reports having intermittent lightheadedness but denies any visual changes, neck pain, nausea, vomiting or syncope. Patient has not taken any medication for treatment of her discomfort. [facility] Medical History (Updated 12/03/24 @ 14:42 by Clair Elizondo PA-C) Physical exam Breast calcification, left Left breast mass Surgical History History of left breast biopsy History of tubal ligation Family History Mother Hypertension Mental health disorder Father Prostate cancer Hypertension Paternal Grandfather Esophageal cancer Family/Other Substance use disorder Paternal Aunt Breast cancer Social History Housing: House Alcohol intake: current Alcohol intake frequency: a few times a month Alcohol type: beer Patient Tobacco Use Status: Never used Tobacco e-Cigarette/Vaping Use: Never Used Second Hand Smoke Exposure: No Substance Use Type: Marijuana Patient : No service: No Current occupational status: employed Current occupation: [employer] Current occupational exposures/hazards: No Gender identity: Female Cognitive needs: No Hearing needs: No Vision needs: No Female Reproductive History Menstrual Age of Menarche: 10 Date of last menstrual period: 11/16/24 Review of Systems Const All systems reviewed & are unremarkable except as noted in HPI and below Reports as per HPI, Reports no additional complaints, Denies body aches, Denies chills, Denies fever(s), Denies headache(s) and Reports other (lightheaded) Eyes Reports no additional complaints, Denies change in vision and Denies loss of vision ENT Reports no additional complaints and Denies headache(s) Card Reports no additional complaints, Reports chest pain ( heaviness ) and Reports palpitations Resp Reports no additional complaints GI Reports no additional complaints and Denies nausea Reports no additional complaints Musc Reports no additional complaints Skin/Breast Reports system reviewed and no additional complaints, except as documented Neuro Reports no additional complaints, Denies headache(s) and Denies loss of vision Psych Reports no additional complaints Endo Reports no additional complaints and Reports palpitations Vlad/Lymph Reports no additional complaints Aller/Immun Reports no additional complaints Physical Exam Vital Signs: Last Vital Signs Temp 98.3 F 12/03/24 13:47 Pulse 89 12/03/24 13:47 BP 100/62 12/03/24 13:47 Pulse Ox 96 12/03/24 13:47 Oxygen Delivery Method Room Air 12/03/24 13:47 BMI result Body Mass Index 24.9 Const General: cooperative, healthy appearing, comfortable, no acute distress, well developed, alert, awake and Physically active Nutritional Appearance: average body habitus Orientation/consciousness: patient oriented x3 Limitations: no limitations Eyes General: appearance normal, both eyes and all related structures Chest Chest palpation & inspection: normal inspection of the chest, normal palpation of entire chest wall and tenderness pectoral muscle on the left diffusely Resp Effort & Inspection: normal respiratory effort, able to speak in complete sentences and no cough Auscultation: clear to auscultation bilaterally Cardio Rate: regular rate Rhythm: regular rhythm Skin General skin exam: no rashes or lesions noted Lesions: no lesions Neuro General: patient oriented x3 Psych Appearance: grossly normal Mental Status: mental status grossly normal Insight: Good insight present (Psych) Judgement: Good judgement present (Psych) Results Reviewed Results Reviewed: EKG reveals NSR at a rate of 71bpm Assessment & Plan Assessment & Plan (1) Chest pressure: Comment: EKG reveals normal sinus rhythm. Patient's vital signs are stable and there has been no tachycardia while here in urgent care. Chest pain is reproducible to deep palpation on the left anterior chest wall. Code(s): R07.89 - Other chest pain Plan: I have had a shared decision making conversation with the patient regarding limitations of the walk-in Clinic in terms of laboratories. Patient is enco uraged to return home, continue antibiotic therapy as before and take Tylenol or ibuprofen as needed for her chest wall pain. Patient will go to the emergency department for any worsening symptoms. (2) Lightheadedness: Comment: Patient states she has been able to hydrate and eat soft foods since her dental extraction. Patient is encouraged to stay very well hydrated and rest as tolerated. Code(s): R42 - Dizziness and giddiness Plan: Increase clear fluids daily and follow up for any worsening symptoms. Orders: Orders AMB EKG-In Office Today R07.9 - Chest pain, unspecified Coding Level of Care Code Est Pt Level 4 (50940) Diagnoses Chest pressure R07.89 Lightheadedness R42 Time Spent (min) 35
== END 2024-12-03 14:48 | disposition home or self-care (01) ==
PROVIDERS: PCP Physician Assistant; Visit Provider Physician Assistant
DX: R07.89 Other chest pain (principal); R42 Dizziness and giddiness

== ENCOUNTER → 2024-12-03 13:46 | Outpatient (BNVA) | payer OTHER, SELFPAY | PROVIDERS: PCP Physician Assistant; Visit Provider Physician Assistant | DX: R42 Dizziness and giddiness (principal); R07.89 Other chest pain | CPT/HCPCS: 93005 ==

== ENCOUNTER 2024-12-04 14:08 | Emergency (ER) | payer OTHER, SELFPAY ==
--- NOTE | 2024-12-04 | ECG_ITS ---
Test Reason : CHEST PAIN Blood Pressure : */* mmHG Vent. Rate : 78 BPM Atrial Rate : 78 BPM P-R Int : 104 ms QRS Dur : 98 ms QT Int : 394 ms P-R-T Axes : 71 48 32 degrees QTcB Int : 449 ms Sinus rhythm with short [place] Nonspecific ST abnormality Abnormal ECG No previous ECGs available Referred By: Generic ED Physician Electronically Signed By: Shar Lara
[2024-12-04 14:12] VITALS: BP 119/77; PULSE 85; RESP 18; TEMP 37; O2SAT 100; BMI 21.6
--- NOTE | 2024-12-04 14:24 | ED_ITS ---
HPI - General Adult General Chief complaint: General Medical Stated complaint: irregular heartbeat , dizzy, lightheaded Time Seen by Provider: 12/04/24 17:32 Source: patient, RN notes reviewed and old records reviewed Mode of arrival: ambulatory Limitations: no limitations History of Present Illness ED Provider: Dell HUGHES narrative: 39-year-old female presents for evaluation of tachycardia and palpitations. Patient reports that her symptoms started on Friday after having a dental extraction. This was performed with local anesthesia and the patient was awake throughout the procedure. She is currently taking amoxicillin which she has had in the past that any issues. She states that since her extraction, whenever she stands up her heart rate elevates to 130 or 140. She reports feeling some palpitations at the time pain She has a associated chest tightness. She also reports some heaviness in her left leg pain She denies any pain with swelling and pain Denies any recent travel, she is not on any contraception She denies any cardiac disease Related Data Previous Rx's ?Medication ?Instructions ?Recorded albuterol sulfate 2.5 mg/3 mL 2.5 mg (3 mL) inhalation Q4-6H PRN 02/16/24 (0.083 %) solution for nebulization shortness of breat h or wheezing 30 days #180 mL albuterol sulfate 90 mcg/actuation 1 inh inhalation QI D 30 days #8.5 04/20/24 aerosol inhaler grams Allergies Allergy/AdvReac Type Severity Reaction Status Date / Time levofloxacin (From LEVAQUIN) Allergy Unknown HIVES Verified 12/04/24 14:12 shellfish derived (SHELLFISH Allergy Unknown THROAT Verified 12/04/24 14:12 DERIVED) ITCHINESS/BURNING/SWELLING shrimp/shellfish Allergy Intermediate angioedema Uncoded 12/04/24 14:12 Review of Systems 2 Constitutional: Constitutional: Denies body ache(s), Denies chills, Denies fever(s) and Denies headache(s) Eyes: Eyes: Denies irritation ENT: Denies dizziness and Denies headache(s) Cardiovascular: Cardiovascular: Reports chest pain, Reports chest pain with activity, Reports rapid heart rate, Reports palpitations, Denies dyspnea and Denies dyspnea on exertion Respiratory: Respiratory: Denies cough, Denies dyspnea and Denies dyspnea on exertion Gastrointestinal: Gastrointestinal: Denies abdominal pain, Denies nausea and Denies vomiting Musculoskeletal: Musculoskeletal: Denies back pain Integumentary/Breasts: Skin/Breast: Denies rash Neurologic: Denies dizziness and Denies headache(s) Psychiatric: Psychiatric: Reports anxiety Endocrine: Endocrine: Reports palpitations PMFSH Past Medical History Medical History (Updated 12/04/24 @ 18:04 by Gulshan Sharpe) Physical exam Breast calcification, left Left breast mass Surgical History History of left breast biopsy History of tubal ligation Family History Family History Mother Hypertension Mental health disorder Father Prostate cancer Hypertension Paternal Grandfather Esophageal cancer Family/Other Substance use disorder Paternal Aunt Breast cancer Social History Social History Housing: House Alcohol intake: unknown Patient Tobacco Use Status: Never used Tobacco Smoked in Last 30 Days: No e-Cigarette/Vaping Use: Never Used Second Hand Smoke Exposure: No Use of substances other than those prescribed or required for medical reasons: No Substance Use Type: Marijuana Advance Directives: No Advance Directives Information Provided: Yes service: No Current occupational status: employed Current occupation: [employer] Current occupational exposures/hazards: No Gender identity: Female Cognitive needs: No Hearing needs: No Vision needs: No Physical Exam ED Vital Signs: Vital Signs - 24 hr 12/04/24 14:12 Temperature 98.6 F Pulse Rate 85 Respiratory Rate 18 Blood Pressure 119/77 Pulse Oximetry 100 Oxygen Delivery Method Room Air BMI result Body Mass Index 21.6 Const General: healthy appearing, comfortable, no acute distress, alert and awake Nutritional Appearance: well nourished Orientation/consciousness: patient oriented x3 HENMT Head: Yes normocephalic and Yes atraumatic Eyes Eyelids: Yes eyelids normal Conjunctivae: conjunctivae normal Sclerae: sclerae normal Corneas: corneas normal Pupils: Equal, round and reactive pupils present EOM: EOMs intact bilaterally Neck Neck: Yes full ROM Resp Effort & Inspection: normal respiratory effort, able to speak in complete sentences, no audible wheezes and not labored Auscultation: clear to auscultation bilaterally Cardio Rate: regular rate Rhythm: regular rhythm GI Inspection: No distended Palpation (GI): Soft to palpation, not firm, nontender, no guarding and not rigid Skin General skin exam: no rashes or lesions noted and elasticity normal Neuro General: patient oriented x3 Cranial nerves: Yes Equal, round and reactive pupils present and Yes Bilaterally intact EOM present Cognition (Neuro): normal cognition Extrem Other: Moving all extremities well without any obvious deformities. No lower extremity edema bilaterally, no erythema, no palpable cords, negative Homans sign Medical Decision Making Medical Decision Making [facility] Narrative: 39-year-old female presents for evaluation of palpitations. She complains of intermittent chest pains for the last 4 days after having a dental extraction. This is performed under local anesthesia, not general anesthesia. She is currently on amoxicillin. She has tolerated this previously without any adverse reactions. I doubt amoxicillin as contributing to her symptoms. She has not had any upset stomach, nausea or vomiting. Her EKG is nonischemic, no arrhythmias noted. She is PERC negative, labs are reassuring, there was no significant anemia, renal function normal limits, no evidence of SHAYLEE. Thyroid studies were ordered which are also reassuring with a normal TSH. The patient also had a troponin that is undetectable despite 4 days of chest pain, she rules out for ACS with a normal troponin and reassuring EKG. The patient's symptoms may be related to anxiety, may be related to POTS syndrome but she will be referred to cardiology for further evaluation and management Differential Diagnosis Differential Diagnoses: The differential diagnosis associated with the presentation includes Palpitations Anxiety Hyperthyroidism PE ACS less likely Arrhythmia SHAYLEE Dehydration Admission/Observation Consideration of admission/observation: Escalation of care including admission/observation considered Patient was considered for admission but workup was largely unremarkable and she rules out for any serious medical illnesses warranting admission Lab Data [facility] Lab Attestation statement: I reviewed the patient's lab results. As above 12/04/24 14:39 12/04/24 14:39 Labs: Lab Results 12/04/24 12/04/24 Range/Units 14:38 14:39 WBC 8.2 (4.8-10.8) X10*3/uL RBC 4.89 (4.20-5.50) X10*6/uL Hgb 13.1 (12.0-16.0) g/dl Hct 39.1 (37.0-47.0) % MCV 80.0 (80.0-98.0) fL MCH 26.8 L (27.0-33.0) pg MCHC 33.5 (31.0-35.0) g/dl RDW 12.3 (11.0-16.0) % Plt Count 239 (160-400) X10*3/uL MPV 10.9 (9.4-12.3) fL Immature Gran % (Auto) 0.2 (0.0-0.4) % Neut % (Auto) 71.4 (45-73) % Lymph % (Auto) 21.7 (20-40) % [place] % (Auto) 4.6 (2-11) % Eos % (Auto) 1.7 (0-4) % Baso % (Auto) 0.4 (0-2) % Lymph # (Auto) 1.8 (1.2-4.9) X10*3/uL [place] # (Auto) 0.4 (0.1-1.2) X10*3/uL Eos # (Auto) 0.1 (0.0-0.4) X10*3/uL Baso # (Auto) 0.0 (0.0-0.2) X10*3/uL Abs Immat Gran (auto) 0.02 (0.00-0.03) X10*3/uL Absolute Neuts (auto) 5.9 (2.0-8.3) x10*3/uL Absolute Nucleated RBC 0.000 (0.0-0.012) X10*3/uL Nucleated RBC % (auto) 0.0 (0.0-0.2) /100WBC Sodium 137 (135-145) mmol/L Potassium 3.9 (3.3-5.1) mmol/L Chloride 105 (96-108) mmol/L Carbon Dioxide 24 (22-29) mmol/L Anion Gap 12 (12-20) BUN 9 (9-16) mg/dL Creatinine 0.74 (0.5-1.4) mg/dL Estim Creat Clear Calc 101.9 Estimated GFR > 60 Random Glucose 105 (60-115) mg/dL Calcium 9.5 (8.4-10.2) mg/dL Total Bilirubin 0.4 (0.0-1.0) mg/dL AST 18 (5-31) U/L ALT 19 (0-31) U/L Alkaline Phosphatase 43 (39-117) U/L Troponin I High Sens < 2.7 (<3.5-17.0) ng/L Total Protein 7.3 (6.5-8.0) g/dL Albumin 4.7 (3.5-5.0) g/dL TSH 0.96 (0.32-4.0) uIU/mL Urine Color Yellow Urine Appearance Clear Urine pH 5.5 (5.0-9.0) Ur Specific [place] 1.020 (1.005-1.025) Urine Protein Negative (Neg-Trace) mg/dL Urine Glucose (UA) Negative (Negative) mg/dL Urine Ketones 15 (Negative) mg/dL Urine Blood Negative (Negative) Urine Nitrite Negative (Negative) Ur Leukocyte Esterase Negative (Negative) Urine RBC 0-2 (0-2) /HPF Urine WBC 0-5 (0-5) /HPF Ur Squamous Epith Cells 3-5 (0-2) /HPF Urine Bacteria None Seen (None Seen) Hyaline Casts 0-2 (0-2) /LPF Urine Test NEGATIVE (NEGATIVE) Influenza Type A (PCR) NEGATIVE (Negative) Influenza Type B (PCR) NEGATIVE (Negative) RSV RNA Qual (PCR) NEGATIVE (Negative) SARS-CoV-2 RNA (RT-PCR) NEGATIVE (Negative) Independent Interpretation I performed an independent interpretation of an: EKG Interpretation: Normal sinus rhythm with short CT interval of [address]-T segment elevation or depressions. Nondiagnostic EKG Discharge Plan Discharge Clinical Impression: Heart palpitations Patient Disposition: Home, Self-Care Instructions: Heart Palpitations (ED) Additional Instructions: Your workup in the ER today was reassuring. This includes your labs, EKG. You may follow up with Cardiology if your symptoms persist Return for new or worsening symptoms Prescriptions: No Action albuterol sulfate 2.5 mg /3 mL (0.083 %) solution for nebulization 2.5 mg inhalation Q4-6H PRN (Reason: shortness of breath or wheezing) 30 Days Qty: 180 1RF albuterol sulfate 90 mcg/actuation HFA aerosol inhaler 1 inh inhalation QID 30 Days Qty: 8.5 3RF Referrals: [facility] [place] [facility] [Provider Group] Referral Note: tachycardia, palpitations Print Language: Maori
[2024-12-04 14:47] LABS: Hematocrit 39.1 % (37.0-47.0); Hemoglobin 13.1 g/dl (12.0-16.0); Imm Gran Abs Auto 0.02 X10*3/uL (0.00-0.03); Imm Gran Pct Auto 0.2 % (0.0-0.4); Lymphocytes Absolute Auto 1.8 X10*3/uL (1.2-4.9); MANUAL DIFF FLAG NO; Mean Corpuscular HGB Conc 33.5 g/dl (31.0-35.0); Mean Corpuscular Hemoglobin 26.8 pg (27.0-33.0); Mean Corpuscular Volume 80.0 fL (80.0-98.0); NRBC Abs Auto 0.000 X10*3/uL (0.0-0.012); NRBC Pct Auto 0.0 /100WBC (0.0-0.2); Platelet Count 239 X10*3/uL (160-400); Red Blood Count 4.89 X10*6/uL (4.20-5.50); White Blood Count 8.2 X10*3/uL (4.8-10.8)
[2024-12-04 14:51] LABS: UPreg QC Valid YES
[2024-12-04 14:55] LABS: Appearance Urine Clear; Glucose Urine UA Negative (Negative); PH 5.5 (5.0-9.0); Specific Gravity - Urine 1.020 (1.005-1.025)
[2024-12-04 15:00] LABS: Alanine Aminotransferase 19 U/L (0-31); Albumin Level 4.7 g/dL (3.5-5.0); Alkaline Phosphatase 43 U/L (39-117); Anion Gap 12 (12-20); Aspartate Amino Transferase 18 U/L (5-31); Blood Urea Nitrogen 9 mg/dL (9-16); Calcium 9.5 mg/dL (8.4-10.2); Carbon Dioxide 24 mmol/L (22-29); Chloride 105 mmol/L (96-108); Creatinine Clr Calc Pharmacy 101.9; Estimated Glomerular Filt Rate > 60; Potassium 3.9 mmol/L (3.3-5.1); Sodium 137 mmol/L (135-145); Total Protein 7.3 g/dL (6.5-8.0)
[2024-12-04 15:08] LABS: Troponin-I High Sensitivity < 2.7 ng/L (<3.5-17.0)
[2024-12-04 16:36] LABS: Resp Syncy Virus RNA Qual PCR NEGATIVE (Negative); SARS COV2 PCR INHOUSE NEGATIVE (Negative)
[2024-12-04 18:19] VITALS: BP 119/77; PULSE 85; RESP 18; TEMP 37; O2SAT 100
== END 2024-12-04 18:19 | disposition home or self-care (01) ==
PROVIDERS: Physician Assistant Medical; Emergency Provider Emergency Medicine; PCP Internal Medicine
DX: R00.2 Palpitations (principal); R07.9 Chest pain, unspecified; R42 Dizziness and giddiness; R00.0 Tachycardia, unspecified; Z03.818 Encounter for observation for suspected exposure to other biological agents ruled out
CPT/HCPCS: 36415; 80053; 81001; 81025; 84443; 84484; 85025; 87637; 93005; 99283; 99284

== ENCOUNTER → 2024-12-04 14:26 | Outpatient (BNV) | payer OTHER, SELFPAY | PROVIDERS: Emergency Provider Emergency Medicine; PCP Internal Medicine; Visit Provider Internal Medicine Cardiovascular Disease | DX: R94.31 Abnormal electrocardiogram [ECG] [EKG] (principal); R07.89 Other chest pain | CPT/HCPCS: 93010 ==

== ENCOUNTER 2024-12-08 10:16 | Outpatient (AMB) | payer OTHER, SELFPAY ==
--- NOTE | 2024-12-08 10:48 | A.OFFVIS_ITS ---
Vital Signs 12/08/24 10:56 Height 5 ft 8 in Weight 143 lb BMI 21.7 BP 112/64 Blood Pressure Location Rt brachial Position Sitting Intake Visit Reasons: Breast pain lump Intake Note: Left breast pain with lump that has been there since 2021. had biopsy done in 2021. went to schedule mammogram but complained of pain so she made an apt with finger cobbler Information Interpreted: clinical only Accompanied by: Self / Same As Patient Allergies levofloxacin (From LEVAQUIN) Allergy (Unknown, Verified 12/08/24 11:52) HIVES shellfish derived (SHELLFISH DERIVED) Allergy (Unknown, Verified 12/08/24 11:52) THROAT ITCHINESS/BURNING/SWELLING shrimp/shellfish Allergy (Intermediate, Uncoded 12/08/24 10:52) angioedema Medication List - Last Reconciled 12/08/24 by Clair Maya LPN albuterol sulfate 2.5 mg (3 mL) inhalation Q4-6H PRN 30 days albuterol sulfate 90 mcg/actuation 1 inh inhalation QID 30 days Is last menstrual period known: Yes Last menstrual period: 11/16/24 Post menopausal: No Patient : No Do you need a note to return to daycare/school/sports/work: No HPI Comments Details: Patient is here today with concerns of left breast pain, history of prior bx., no discharge, no injury to area. Pain is random. [facility] Medical History Physical exam Breast calcification, left Left breast mass Surgical History History of left breast biopsy History of tubal ligation Family History Mother Hypertension Mental health disorder Father Prostate cancer Hypertension Paternal Grandfather Esophageal cancer Family/Other Substance use disorder Paternal Aunt Breast cancer Social History Housing: House Alcohol intake: unknown Patient Tobacco Use Status: Never used Tobacco e-Cigarette/Vaping Use: Never Used Second Hand Smoke Exposure: No Substance Use Type: Marijuana Patient : No service: No Current occupational status: employed Current occupation: [employer] Current occupational exposures/hazards: No Gender identity: Female Cognitive needs: No Hearing needs: No Vision needs: No Female Reproductive History Menstrual Age of Menarche: 10 Date of last menstrual period: 11/16/24 control method: permanent sterilization Total pregnancies: 3 Full term: 3 Number of Living Children: 3 Review of Systems Const All systems reviewed & are unremarkable except as noted in HPI and below Reports no additional complaints Skin/Breast Reports system reviewed and no additional complaints, except as documented and Reports as per HPI Physical Exam Vital Signs: Last Vital Signs BP 112/64 12/08/24 10:56 BMI result Body Mass Index 21.7 Const General: cooperative, healthy appearing and no acute distress Chest Breast/axilla inspection: normal inspection of the breasts and normal inspection of the axillae Breast/axilla palpation: abnormal palpation of the breast (firm, mobile, sl. tender left breast lump 12:00) Skin General skin exam: no rashes or lesions noted Assessment & Plan Assessment & Plan (1) Left breast mass: Comment: At 12 o'clock Code(s): N63.20 - Unspecified lump in the left breast, unspecified quadrant Category: Medical Qualifiers: Breast mass location: unspecified quadrant Qualified Code(s): N63.20 - Unspecified lump in the left breast, unspecified quadrant Plan Discussed: Workup for breast lump to include breast ultrasound and bilateral diagnostic mammogram. Breast biopsy if indicated. Follow up pending ultrasound and mammogram results. OTC comfort measures. The patient expressed understanding and agreement with the plan of care. All of her questions and concerns were addressed to the best of my ability. This note is constructed using voice recognition software. While every effort has been made to ensure accuracy, manufacturing quality inspector errors may have been included. Orders: Orders MM tomosynthesis diagnostic BI Today N63.20 - Unspecified lump in the left breast, unspecified quadrant, Z12.31 - Encounter for screening mammogram for malignant neoplasm of breast US breast LT limited Today N63.20 - Unspecified lump in the left breast, unspecified quadrant Coding Level of Care Code Est Pt Level 3 (72189) Diagnoses Mass of left breast, unspecified quadrant N63.20 Breast mass location: unspecified quadrant
[2024-12-08 10:56] VITALS: BP 112/64; BMI 21.7
== END 2024-12-08 11:58 | disposition home or self-care (01) ==
LOC: HO.HWS 10:17
PROVIDERS: PCP Internal Medicine; Visit Provider Advanced Practice Midwife
DX: N63.20 Unspecified lump in the left breast, unspecified quadrant (principal)
CPT/HCPCS: 99213

== ENCOUNTER 2024-12-08 11:42 | Outpatient (AMB) | payer OTHER, SELFPAY ==
[2024-12-08 11:45] VITALS: BP 104/68; PULSE 84; TEMP 37.2; O2SAT 99; BMI 21.9
--- NOTE | 2024-12-08 11:45 | AM.OFFWIN_ITS ---
Intake Vital Signs 12/08/24 11:45 Height 5 ft 8 in Weight 144 lb 2 oz BMI 21.9 BP 104/68 Blood Pressure Location Rt brachial Position Sitting Pulse 84 Pulse Source Pulse Oximeter Temp 98.9 F Temp Source Oral Pulse Oximetry (%) 99 Oxygen Delivery Method Room Air Intake Visit Reasons: EP-numbness lt leg & heart palpitation Intake Note: Patient present with leg numbness times 4 days, heart palpitations with excretion Patient Tobacco Use Status: Never used Tobacco Regulatory Compliance Officer Required: No Is last menstrual period known: Yes Last menstrual period: 11/13/24 Post menopausal: No Patient : No Allergies levofloxacin (From LEVAQUIN) Allergy (Unknown, Verified 12/08/24 11:52) HIVES shellfish derived (SHELLFISH DERIVED) Allergy (Unknown, Verified 12/08/24 11:52) THROAT ITCHINESS/BURNING/SWELLING shrimp/shellfish Allergy (Intermediate, Uncoded 12/08/24 10:52) angioedema Medication List - Last Reconciled 12/08/24 by Elizabeth Bush MD albuterol sulfate 2.5 mg (3 mL) inhalation Q4-6H PRN 30 days albuterol sulfate 90 mcg/actuation 1 inh inhalation QID 30 days Do you need a note to return to daycare/school/sports/work: No HPI EP-numbness lt leg & heart palpitation HPI Details History - The patient is a 39-year-old female pr esenting with numbness and tingling in the left leg. The numbness has been described as a heaviness with a cold sensation. The symptoms began last Friday. - Additionally, the patient reports inte rmittent palpitations accompanied by feelings of dizziness and lightheadedness. - She first noticed palpitations and ass ociated symptoms on December 04 when she visited the [facility] Emergency Room. She was advised that the symptoms might be related to anxiety. - An EKG performed was non-ischemic with no arrhythmia noted. Labs indicated no significant anemia, normal renal function, normal thyroid studies, and undetectable troponin levels. - The patient denies chest pain but repo rts occasional chest pressure. She also mentions increased heart rate and pressure upon standing or exerted actions like brushing teeth. - Tingling in the face or tongue was not ed but is associated with recent molar extraction. - No previous instances of leg heaviness or similar symptoms have occurred prior to this event. - The patient notes pressure between her eyes and denies any visual disturbances, fever, chills, nausea, or vomiting. Surgical History: - Molar extraction done recently on the right side. 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 - She maintains an active lifestyle, typ kobey walking roughly 9,000 steps per day during the school term. - The patient denies substance use. - There is no indication of anxiety [place] to an upcoming personal trip. Family History: - Father has back problems. - No family history of neurological diso rders like multiple sclerosis. Problem List - Peripheral neuropathy symptoms ([place]); left leg - Intermittent palpitations; - Possible anxiety-related symptoms. Diagnostic results - EKG results: Non-ischemic, no arrhythm ia noted. - Labs: Normal renal function, normal th yroid studies, troponins undetectable, no significant anemia. Patient Instructions - Rest and avoid walks for now. - Stay inside in an air-conditioned envi ronment, especially given current weather conditions. - Hydrate well and drink plenty of water . - Follow up with a neurologist for evalu ation of neuropathy. - An EMG nerve conduction study will be ordered to investigate symptoms further. - Consider taking vitamin B12 supplement s. - follow-up with heel nail rasper since she already have appointment and your PCP - start taking vitamin B12 OTC Review of Systems General: No fever no chills neurological: No headaches no dizziness ear nose throat: No sore throat no hearing difficulty no ear pain cardiovascular: No syncope gastrointestinal: No nausea vomiting or diarrhea endocrine: No polyuria polydipsia no heat intolerance genitourinary: No dysuria skin: No new complaints Physical Exam general: No acute distress HEENT: No acute findings neck: Supple respiratory system: Able to talk in full sentences cardiovascular: S1-S2 RRR gastrointestinal: No pain extremities: Left lower extremity without any physical findings, no pain with palpation over calf or behind the knee, knee has full range of motion skin color pink toes are warm 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 awake oriented x3 gait stable skin: Normal turgor Psych: Seems overwhelmed and tearful [facility] Medical History Physical exam Breast calcification, left Left breast mass Surgical History History of left breast biopsy History of tubal ligation Family History Mother Hypertension Mental health disorder Father Prostate cancer Hypertension Paternal Grandfather Esophageal cancer Family/Other Substance use disorder Paternal Aunt Breast cancer Social History Housing: House Alcohol intake: unknown Patient Tobacco Use Status: Never used Tobacco e-Cigarette/Vaping Use: Never Used Second Hand Smoke Exposure: No Substance Use Type: Marijuana Patient : No service: No Current occupational status: employed Current occupation: [employer] Current occupational exposures/hazards: No Gender identity: Female Cognitive needs: No Hearing needs: No Vision needs: No Female Reproductive History Menstrual Age of Menarche: 10 Date of last menstrual period: 11/13/24 Physical Exam Vital Signs: Last Vital Signs Temp 98.9 F 12/08/24 11:45 Pulse 84 12/08/24 11:45 BP 104/68 12/08/24 11:45 Pulse Ox 99 12/08/24 11:45 Oxygen Delivery Method Room Air 12/08/24 11:45 BMI result Body Mass Index 21.9 Assessment & Plan Assessment & Plan (1) Seen in emergency room: Code(s): Z76.89 - Persons encountering health services in other specified circumstances (2) Left leg paresthesias: Code(s): R20.2 - Paresthesia of skin (3) Chest pressure: Comment: EKG reveals normal sinus rhythm. Patient's vital signs are stable and there has been no tachycardia while here in urgent care. Chest pain is reproducible to deep palpation on the left anterior chest wall. Code(s): R07.89 - Other chest pain (4) Heart palpitations: Code(s): R00.2 - Palpitations Plan History - The patient is a 39-year-old female presenting with numbness and tingling in the left leg. The numbness has been described as a heaviness with a cold sensation. The symptoms began last Friday. - Additionally, the patient reports intermittent palpitations accompanied by feelings of dizziness and lightheadedness. - She first noticed palpitations and associated symptoms on December 04 when she visited the [facility] Emergency Room. She was advised that the symptoms might be related to anxiety. - An EKG performed was non-ischemic with no arrhythmia noted. Labs indicated no significant anemia, normal renal function, normal thyroid studies, and undetectable troponin levels. - The patient denies chest pain but reports occasional chest pressure. She also mentions increased heart rate and pressure upon standing or exerted actions like brushing teeth. - Tingling in the face or tongue was noted but is associated with recent molar e xtraction. - No previous instances of leg heaviness or similar symptoms have occurred prior to this event. - The patient notes pressure between her eyes and denies any visual disturbances, fever, chills, nausea, or vomiting. Surgical History: - Molar extraction done recently on the right side. 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 - She maintains an active lifestyle, typically walking roughly 9,000 steps per day during the school term. - The patient denies substance use. - There is no indication of anxiety related to an upcoming personal trip. Family History: - Father has back problems. - No family history of neurological disorders like multiple sclerosis. Problem List - Peripheral neuropathy symptoms (suspected); left leg - Intermittent palpitations; - Possible anxiety-related symptoms. Diagnostic results - EKG results: Non-ischemic, no arrhythmia noted. - Labs: Normal renal function, normal thyroid studies, troponins undetectable, no significant anemia. Patient Instructions - Rest and avoid walks for now. - Stay inside in an air-conditioned environment, especially given current weather conditions. - Hydrate well and drink plenty of water. - Follow up with a neurologist for evaluation of neuropathy. - An EMG nerve conduction study will be ordered to investigate symptoms further. - Consider taking vitamin B12 supplements. - follow-up with heel nail rasper since she already have appointment and your PCP - start taking vitamin B12 OTC Orders: Orders NE nerve conduction velocity Today R20.2 - Paresthesia of skin NE electromyogram (EMG) Today R20.2 - Paresthesia of skin Coding Level of Care Code Est Pt Level 5 (74231) Diagnoses Seen in emergency room Z76.89 Left leg paresthesias R20.2 Chest pressure R07.89 Heart palpitations R00.2 Time Spent (min) 40 Comment Refilling chart/emergency room notes/labs/[id number]/coordination of care
== END 2024-12-08 12:21 | disposition home or self-care (01) ==
PROVIDERS: PCP Internal Medicine; Visit Provider Internal Medicine
DX: R20.2 Paresthesia of skin (principal); R07.89 Other chest pain; R00.2 Palpitations; Z76.89 Persons encountering health services in other specified circumstances

== ENCOUNTER 2024-12-14 13:29 | Outpatient (REF) | payer OTHER, SELFPAY ==
--- NOTE | ~2024-12-14 | MM_ITS ---
EXAMINATIONS: 1. MM DIAGNOSTIC DIGITAL BREAST TOMOSYNTHESIS, BILATERAL 2. US BREAST LIMITED LEFT CLINICAL INFORMATION: Left breast lump at 12 o'clock position. Stereotactic needle core biopsy on January 24, 2021: Pathology results showed Benign breast tissue with columnar cell change, fibrocystic changes, and microcalcifications. No atypia or malignancy identified. COMPARISON: Comparison made to multiple prior mammograms, most recent September 22, 2023, and most remote January 19, 2021. Prior left breast ultrasound on December 14, 2024 obtained at the location of the palpable concern in the left breast. TECHNIQUE: Digital breast tomosynthesis is performed in both the craniocaudal and mediolateral oblique views along with computer-aided detection (CAD). Synthesized 2D images are generated from the tomosynthesis. A BB marker was placed at the location of the palpable concern in the upper breast at approximately 12 o'clock position. FINDINGS: BREAST COMPOSITION: The breasts are heterogeneously dense, which may obscure small masses (ACR BI-RADS breast composition Category c). RIGHT BREAST: No significant masses, suspicious calcifications or other abnormalities are seen. LEFT BREAST: -Note that the location of the skin BB marker seen on today's images is at similar location to the skin marker placed on the mammogram on January 19, 2021. In the vicinity of the skin BB marker, there is a stable area of dense breast tissue containing calcifications and biopsy clip; the appearance of the local parenchyma is similar to multiple prior studies as far back as 2020. -No suspicious calcifications or other abnormalities are seen. Targeted ultrasound of the left breast was performed at the location of the palpable concern as indicated by the patient. The survey shows an ill-defined area of hypoechoic dense breast tissue measuring 2.2 x 1.1 x 1.7 cm containing multiple small cysts and multiple calcifications (echogenic foci associated with artifact) at 12 o'clock position 4 cm from the nipple. No abnormal vascularity with color Doppler evaluation. In comparison to a previous ultrasound from January 19, 2021, there has been interval increase in the cystic components (better seen on the cine loop images). MM/MM tomosynthesis diagnostic BI IMPRESSION: RIGHT BREAST: Negative, no mammographic evidence of malignancy. Normal interval follow-up is recommended in 12 months. LEFT BREAST: Palpable concern at 12 o'clock position correlates with area of chronic dense breast tissue containing calcifications and biopsy clip. Sonographic appearance of the local parenchyma shows more cystic components from December 2020; difficult to compare the size of this focal area. Probably benign. A 6-month follow-up mammogram and ultrasound is recommended to evaluate for stability; if the findings are stable at that point patient can probably return to routine screening mammogram with continued clinical follow-up. ASSESSMENT: BI-RADS 3 - Probably benign finding(s) - 6 month follow-up suggested RECOMMENDATION: 6 Month F/U Results were provided to the patient at time of visit by the technologist. This patient's information was entered into a reminder system with a target due date for their next mammogram. Electronically signed by: Leonor Barnes MD 12/14/2024 06:59 PM EDT
== END 2024-12-14 13:30 | disposition home or self-care (01) ==
LOC: HO.MAMMO 13:29
PROVIDERS: PCP Internal Medicine; Visit Provider Advanced Practice Midwife
DX: N63.25 Unspecified lump in the left breast, overlapping quadrants (principal)
CPT/HCPCS: 76642; 77062; 77066

== ENCOUNTER → 2024-12-14 13:30 | Outpatient (BNV) | payer OTHER, SELFPAY | PROVIDERS: PCP Internal Medicine; Visit Provider Radiology Body Imaging | DX: N63.22 Unspecified lump in the left breast, upper inner quadrant (principal); R92.1 Mammographic calcification found on diagnostic imaging of breast; R92.333 Mammographic heterogeneous density, bilateral breasts | CPT/HCPCS: 76642; 77062; 77066 ==

== ENCOUNTER 2024-12-28 09:56 | Outpatient (AMB) | payer OTHER, SELFPAY ==
--- NOTE | 2024-12-28 09:58 | MHC.OFFVIS ---
Intake Visit Reasons: breast ultra sound follow up Personnel Worker: Personnel Worker Present (MARGAUX Payne) Accompanied by: Self / Same As Patient Allergies levofloxacin (From LEVAQUIN) Allergy (Unknown, Verified 12/28/24 10:03) HIVES shellfish derived (SHELLFISH DERIVED) Allergy (Unknown, Verified 12/28/24 10:03) THROAT ITCHINESS/BURNING/SWELLING shrimp/shellfish Allergy (Intermediate, Uncoded 12/08/24 10:52) angioedema HPI Comments Details: Patient is here today for a follow up mammogram and breast ultrasound, history of left breast pain, biopsy, increased density and calcifications. She reports the pain has not increased or area enlarging. COUNTS INCLUDE 234 BEDS AT THE [facility] Medical History Physical exam Breast calcification, left Left breast mass Surgical History History of left breast biopsy History of tubal ligation Family History Mother Hypertension Mental health disorder Father Prostate cancer Hypertension Paternal Grandfather Esophageal cancer Family/Other Substance use disorder Paternal Aunt Breast cancer Social History Housing: House Alcohol intake: unknown Patient Tobacco Use Status: Never used Tobacco e-Cigarette/Vaping Use: Never Used Second Hand Smoke Exposure: No Substance Use Type: Marijuana service: No Current occupational status: employed Current occupation: [employer] Current occupational exposures/hazards: No Gender identity: Female Cognitive needs: No Hearing needs: No Vision needs: No Female Reproductive History Menstrual Age of Menarche: 10 Review of Systems Const All systems reviewed & are unremarkable except as noted in HPI and below Reports no additional complaints Skin/Breast Reports system reviewed and no additional complaints, except as documented and Reports as per HPI Physical Exam Const General: cooperative, healthy appearing and no acute distress Chest Breast/axilla inspection: normal inspection of the breasts and normal inspection of the axillae Breast/axilla palpation: normal palpation of the breasts (left breast thickening 12:00) Skin General skin exam: no rashes or lesions noted Results Reviewed Results Reviewed: [facility] [address] [place] [address] Mammography Report Signed Patient: Carly Jaimes MR#: [id number] : 1985 Acct:[id number] Age/Sex: 39 / F ADM Date: 12/14/24 Loc: HO.MAMMO Attending Dr: Katheryn Nolan CNM Ordering Physician: Katheryn Nolan CNM Results: 3.6MProbably Benign Finding - Short 6 M F/U Suggested Date of Service: 12/14/24 Follow Up: 6 Month F/U Procedure(s): MM tomosynthesis diagnostic BI Accession Number(s): [id number] cc: Katheryn Nolan CNM; Cherri Borrero MD~ EXAMINATIONS: 1. MM DIAGNOSTIC DIGITAL BREAST TOMOSYNTHESIS, BILATERAL 2. US BREAST LIMITED LEFT CLINICAL INFORMATION: Left breast lump at 12 o'clock position. Stereotactic needle core biopsy on January 24, 2021: Pathology results showed Benign breast tissue with columnar cell change, fibrocystic changes, and microcalcifications. No atypia or malignancy identified. COMPARISON: Comparison made to multiple prior mammograms, most recent September 22, 2023, and most remote January 19, 2021. Prior left breast ultrasound on December 14, 2024 obtained at the location of the palpable concern in the left breast. TECHNIQUE: Digital breast tomosynthesis is performed in both the craniocaudal and mediolateral oblique views along with computer-aided detection (CAD). Synthesized 2D images are generated from the tomosynthesis. A BB marker was placed at the location of the palpable concern in the upper breast at approximately 12 o'clock position. FINDINGS: BREAST COMPOSITION: The breasts are heterogeneously dense, which may obscure small masses (ACR BI-RADS breast composition Category c). RIGHT BREAST: No significant masses, suspicious calcifications or other abnormalities are seen. LEFT BREAST: -Note that the location of the skin BB marker seen on today's images is at similar location to the skin marker placed on the mammogram on January 19, 2021. In the vicinity of the skin BB marker, there is a stable area of dense breast tissue containing calcifications and biopsy clip; the appearance of the local parenchyma is similar to multiple prior studies as far back as 2020. -No suspicious calcifications or other abnormalities are seen. Targeted ultrasound of the left breast was performed at the location of the palpable concern as indicated by the patient. The survey shows an ill-defined area of hypoechoic dense breast tissue measuring 2.2 x 1.1 x 1.7 cm containing multiple small cysts and multiple calcifications (echogenic foci associated with artifact) at 12 o'clock position 4 cm from the nipple. No abnormal vascularity with color Doppler evaluation. In comparison to a previous ultrasound from January 19, 2021, there has been interval increase in the cystic components (better seen on the cine loop images). MM/MM tomosynthesis diagnostic BI IMPRESSION: RIGHT BREAST: Negative, no mammographic evidence of malignancy. Normal interval follow-up is recommended in 12 months. LEFT BREAST: Palpable concern at 12 o'clock position correlates with area of chronic dense breast tissue containing calcifications and biopsy clip. Sonographic appearance of the local parenchyma shows more cystic components from December 2020; difficult to compare the size of this focal area. Probably benign. A 6-month follow-up mammogram and ultrasound is recommended to evaluate for stability; if the findings are stable at that point patient can probably return to routine screening mammogram with continued clinical follow-up. ASSESSMENT: BI-RADS 3 - Probably benign finding(s) - 6 month follow-up suggested RECOMMENDATION: 6 Month F/U Results were provided to the patient at time of visit by the technologist. This patient's information was entered into a reminder system with a target due date for their next mammogram. Electronically signed by: Leonor Barnes MD 12/14/2024 06:59 PM EDT Dictated By: Leonor Barnes MD Signed By: <Electronically signed by Leonor Barnes MD in OV> 12/14/24 1859 DD/ 1340 TD/TT: 12/14/24 1400 [facility] Sales Consultant: Assessment & Plan Assessment & Plan (1) Breast calcification, left: Code(s): R92.1 - Mammographic calcification found on diagnostic imaging of breast Category: Medical Plan: See diagnostic studies report. (2) Mastalgia: Code(s): N64.4 - Mastodynia (3) Left breast mass: Comment: At 12 o'clock Code(s): N63.20 - Unspecified lump in the left breast, unspecified quadrant Category: Medical Qualifiers: Breast mass location: unspecified quadrant Qualified Code(s): N63.20 - Unspecified lump in the left breast, unspecified quadrant Plan: Discussed: Exam findings. Plan Discussed: Ultrasound and mammogram findings- IMPRESSION: RIGHT BREAST: Negative, no mammographic evidence of malignancy. Normal interval follow-up is recommended in 12 months. LEFT BREAST: Palpable concern at 12 o'clock position correlates with area of chronic dense breast tissue containing calcifications and biopsy clip. Sonographic appearance of the local parenchyma shows more cystic components from December 2020; difficult to compare the size of this focal area. Probably benign. A 6-month follow-up mammogram and ultrasound is recommended to evaluate for stability; if the findings are stable at that point patient can probably return to routine screening mammogram with continued clinical follow-up. Reviewed ultrasound findings. Referral to breast surgeon for follow up/consult, patient will consider. Keep follow up mammography studies in 6 months. Annual exam scheduled February 2025. Advised to call and come in if there is any changes of the breast including increased pain, skin changes, thickening or other concerns. The patient expressed understanding and agreement with the plan of care. All of her questions and concerns were addressed to the best of my ability. This note is constructed using voice recognition software. While every effort has been made to ensure accuracy, questioned documents examiner errors may have been included. Coding Level of Care Code Est Pt Level 3 (16704) Diagnoses Breast calcification, left R92.1 Mastalgia N64.4 Mass of left breast, unspecified quadrant N63.20 Breast mass location: unspecified quadrant
== END 2024-12-28 10:19 | disposition home or self-care (01) ==
LOC: HO.HWS 09:56
PROVIDERS: PCP Internal Medicine; Visit Provider Advanced Practice Midwife
DX: R92.1 Mammographic calcification found on diagnostic imaging of breast (principal); N64.4 Mastodynia; N63.20 Unspecified lump in the left breast, unspecified quadrant
CPT/HCPCS: 99213

== ENCOUNTER → 2025-01-03 10:36 | Outpatient (REF) | payer OTHER, SELFPAY ==
--- NOTE | 2025-01-03 10:38 | HM_ITS ---
Conclusion: 1. Patient was monitored for total period of 2 days 2. Baseline was normal sinus rhythm with average heart of 87 beats per minute 3. Very rare burden of PVCs noted with total of 31 PVCs in 2 days accounting for less than 0.01% 4. No significant pauses noted 5. Patient marked the counter 19 times with the symptoms described as jump in the heart correlating with isolated PVCs MTDD
== END ==
LOC: HO.CARD 10:36
PROVIDERS: Visit Provider Internal Medicine
DX: R00.2 Palpitations (principal)
CPT/HCPCS: 93225

== ENCOUNTER → 2025-01-03 10:38 | Outpatient (BNV) | payer OTHER, SELFPAY | PROVIDERS: Visit Provider Internal Medicine Cardiovascular Disease | DX: I49.3 Ventricular premature depolarization (principal) | CPT/HCPCS: 93227 ==

== ENCOUNTER 2025-01-05 11:07 | Outpatient (AMB) | payer OTHER, SELFPAY ==
[2025-01-05 11:18] VITALS: BP 90/60; PULSE 73; RESP 18; O2SAT 96; BMI 21.5
--- NOTE | 2025-01-05 11:18 | MHC.PC.OV ---
Vital Signs 01/05/25 11:18 Height 5 ft 8 in Weight 141 lb 6 oz BMI 21.5 BP 90/60 Blood Pressure Location Lt brachial Position Sitting Respiration 18 Pulse 73 Pulse Source Pulse Oximeter Temp Source Temporal Artery Scan Pulse Oximetry (%) 96 Oxygen Delivery Method Room Air Intake Visit Reasons: PE Cold Header Operator Required: No Accompanied by: Self / Same As Patient Allergies levofloxacin (From LEVAQUIN) Allergy (Unknown, Verified 01/05/25 11:27) HIVES shellfish derived (SHELLFISH DERIVED) Allergy (Unknown, Verified 01/05/25 11:27) THROAT ITCHINESS/BURNING/SWELLING shrimp/shellfish Allergy (Intermediate, Uncoded 01/05/25 11:27) angioedema Medication List - Last Reconciled 01/05/25 by Cherri Wong MD albuterol sulfate 2.5 mg (3 mL) inhalation Q4-6H PRN 30 days albuterol sulfate 90 mcg/actuation 1 inh inhalation QID 30 days nabumetone 750 mg PO BID PRN 7 days Tobacco use date assessed: 03/11/23 Dental Screening Dental Screen Date: 01/05/25 Did you have a dental visit in the last 12 months?: Yes Did you have a dental problem in the last 6 months where you did not have access to dental care?: No Was dental information given to patient?: Patient has dentist HPI HPI Comments History of Present Illness Details The patient is a 39-year-old female presenting for an annual physical examination and evaluation of multiple symptoms including tachycardia and paresthesia. The patient reports experiencing episodes of tachycardia, with heart rates reaching 125-137 bpm during minimal exertion, such as standing up or walking to the bathroom. These episodes began in September and have been associated with chest pressure. She was prescribed medication in November, but continues to experience symptoms. The patient also describes paresthesia, characterized by tingling sensations on the right side of her face and muscle twitching throughout her body. These symptoms have persisted for over a month, with the muscle twitching being attributed to tension. In September, the patient experienced a syncopal episode resulting in head trauma after a fall, which occurred following a sudden fright. She sustained significant head impact and dental injury, but no imaging was performed at that time. The patient has a history of hypertension and asthma, and her family history is significant for hypertension and prostate cancer in her father. She underwent a left breast biopsy and tubal ligation in the past. She reports occasional alcohol consumption and a history of cannabis use, which she has ceased for the past two months. Her recent laboratory results indicated a hemoglobin level of 13.9 g/dL and normal thyroid function. [facility] Medical History (Updated 01/05/25 @ 11:39 by Cherri Wong MD) Physical exam Breast calcification, left Left breast mass Surgical History History of left breast biopsy History of tubal ligation Family History Mother Hypertension Mental health disorder Father Prostate cancer Hypertension Paternal Grandfather Esophageal cancer Family/Other Substance use disorder Paternal Aunt Breast cancer Social History (Updated 01/05/25 @ 11:31 by Cherri Wong MD) Housing: House Alcohol intake: unknown Patient Tobacco Use Status: Never used Tobacco e-Cigarette/Vaping Use: Never Used Second Hand Smoke Exposure: No Substance Use Type: Marijuana service: No Current occupational status: employed Current occupation: [employer] Current occupational exposures/hazards: No Gender identity: Female Cognitive needs: No Hearing needs: No Vision needs: No Female Reproductive History Menstrual Age of Menarche: 10 Questionnaire PHQ-9 Over the last 2 weeks, how often have you been bothered by any of the following problems? 1. Little interest or pleasure in doing things: not at all 2. Feeling down, depressed, or hopeless: not at all 3. Trouble falling or staying asleep, or sleeping too much: not at all 4. Feeling tired or having little energy: more than half the days 5. Poor appetite or overeating: not at all 6. Feeling bad about yourself - or that you are a failure or have let yourself or your family down: not at all 7. Trouble concentrating on things, such as reading the newspaper or watching television: not at all 8. Moving or speaking so slowly that other people could have noticed. Or the opposite - being so fidgety or restless that you have been moving around a lot more than usual: not at all 9. Thoughts that you would be better off or of hurting yourself in some way: not at all Total score: 2 Depression Screening Interpretation: Negative Depression Screening Done: Yes 13901 - PHQ-9 Billing: Yes Source: Developed by Drs. Ronnell Lopez, Carissa Mujica, Tad Burrell and colleagues, with an educational brandon from [employer]. Thrive Questionnaire Date Thrive assessed: 01/05/25 I am a: Patient What is your living situation today?: I have a steady place to live Within the past 12 months, did the food you bought not last and you didn't have the money to get more?: Sometimes True Within the past 12 months, did you worry whether your food would run out before you got money to buy more?: Often true Do you have trouble paying for medicines?: Yes Do you have trouble getting transportation to medical appointments?: No Do you have trouble paying your heating and electricity bill?: Yes Do you have trouble taking care of your child, family member or friend?: No Do you have trouble with day-to-day activities such as bathing, preparing meals, shopping, managing finances, etc.?: No Are you currently unemployed and looking for a job?: No Are you interested in more education?: Yes Currently or been in a relationship where the following occur: No concerns reported THRIVE Score: 3 AUDIT C Alcohol Use Questionnaire (AUDIT-C) 1. How often do you have a drink containing alcohol?: Monthly or less 2. How many drinks containing alcohol do you have on a typical day when you are drinking?: 1 or 2 3. How often do you have six or more drinks on one occasion?: Never Total Score: 1 Score Reviewed/Action Taken: No SHANIA-7 AMB Questionnaire SHANIA-7 Date SHANIA - 7 assessed: 12/25/22 Feeling nervous, anxious, or on edge: 0 = Not at all Not being able to stop or control worryin = Not at all Worrying too much about different things: 0 = Not at all Trouble relaxin = Not at all Being so restless that it is hard to sit still: 0 = Not at all Becoming easily annoyed or irritable: 0 = Not at all Feeling afraid as if something awful might happen: 0 = Not at all Total SHANIA-7 score (0-4 normal; 5-9 mild; 10-14 moderate; 15-21 severe): 0 Source: Developed by Drs. Ronnell Lopez, Carissa Mujica, Tad Burrell and colleagues, with an educational brandon from [employer]. SHANIA-7 Assessment Billing SHANIA-7 Assessment Tool: SHANIA-7 Assessment 97777 Review of Systems Const All systems reviewed & are unremarkable except as noted in HPI and below Card Denies chest pain at rest, Denies chest pain with activity, Denies edema, Denies irregular heart rhythm, Denies claudication, Denies dyspnea, Denies dyspnea on exertion, Denies orthopnea, Denies paroxysmal nocturnal dyspnea and Denies slow heart rate Resp Denies cough, Denies dyspnea and Denies dyspnea on exertion GI Denies abdominal pain, Denies change in bowel habits, Denies excessive flatus, Denies nausea and Denies vomiting Denies urinary incontinence, Denies urinary hesitancy and Denies urinary urgency Musc Denies atrophy, Denies deformity and Denies limited range of motion Physical exam (Primary Care) Vital Signs: Last Vital Signs Pulse 73 01/05/25 11:18 Resp 18 01/05/25 11:18 BP 90/60 01/05/25 11:18 Pulse Ox 96 01/05/25 11:18 Oxygen Delivery Method Room Air 01/05/25 11:18 BMI result Body Mass Index 21.5 Tobacco/Smoking Status: Tobacco use Status Tobacco use date assessed 03/11/23 01/05/25 11:24 Patient Tobacco Use Status Never used Tobacco 01/05/25 11:24 e-Cigarette/Vaping Use Never Used 01/05/25 11:24 PHQ-9: PHQ-9 Score PHQ-9: Total score 2 01/05/25 11:24 Depression Screening Interpretation: Negative Thrive Assessment: Date of Thrive Assessment Date Thrive assessed 01/05/25 01/05/25 11:24 Currently or been in a relationship where the following occur: No concerns reported HENMT Head: Yes normal to inspection, Yes normocephalic and Yes atraumatic Ears: external ears normal Eyes General: appearance normal, both eyes and all related structures Eyelids: Yes eyelids normal Conjunctivae: conjunctivae normal Neck Neck: Yes normal visual inspection and Yes supple Resp Effort & Inspection: normal respiratory effort Auscultation: clear to auscultation bilaterally Cardio Jugular venous distension: no JVD Rate: regular rate Rhythm: regular rhythm Heart sounds: S1 normal heart sound present and S2 normal heart sound present GI Inspection: Yes normal to inspection Palpation (GI): Soft to palpation and nontender Auscultation: normal bowel sounds Skin General skin exam: no rashes or lesions noted Neuro General: no focal motor deficits Extrem General: Yes full ROM Psych Appearance: grossly normal Coding Level of Care Code Est Pt Level 4 (53217) Est Pt Prev Care 40-64y(07038) Diagnoses Physical exam Z00.00 Syncope R55 Muscle twitching R25.3 Facial tingling R20.2 Left leg paresthesias R20.2 Neck pain M54.2 Tachycardia R00.0 Chest pain R07.9 Additional Codes SHANIA-7 Assessment Billing - SHANIA-7 Assessment Tool: SHANIA-7 Assessment 01000 ([id number]) PHQ-9 - 88669 - PHQ-9 Billing: Yes ([id number]) Time Spent (min) 40 Assessment & Plan Assessment & Plan (1) Physical exam: Code(s): Z00.00 - Encounter for general adult medical examination without abnormal findings Category: Medical (2) Syncope: Code(s): R55 - Syncope and collapse Category: Medical (3) Muscle twitching: Code(s): R25.3 - Fasciculation Category: Medical (4) Facial tingling: Code(s): R20.2 - Paresthesia of skin Category: Medical (5) Left leg paresthesias: Code(s): R20.2 - Paresthesia of skin Category: Medical (6) Neck pain: Code(s): M54.2 - Cervicalgia Category: Medical (7) Tachycardia: Code(s): R00.0 - Tachycardia, unspecified Category: Medical (8) Chest pain: Code(s): R07.9 - Chest pain, unspecified Category: Medical Plan The patient will be referred to neurology for further evaluation of paresthesia and muscle twitching, which may be related to tension or other neurological causes. An MRI of the head is planned to assess for any underlying issues related to the previous head trauma and current neurological symptoms. A Holter monitor was recently used to evaluate the episodes of tachycardia, and the results will be reviewed to guide further management. The patient is advised to follow up with cardiology in March for further assessment and management of her cardiovascular symptoms. Preventative care measures include a follow-up mammography in 10 months and checking cholesterol and vitamin levels to address potential deficiencies related to her symptoms. Patient was informed and verbally consented to the use of an ambient scribe for clinic note documentation during this visit. Orders: Orders NM cardiolite stress test Today R07.9 - Chest pain, unspecified Lipid Panel Today E78.5 - Hyperlipidemia, unspecified XR cervical spine 2V Today M54.2 - Cervicalgia MR head/brain wo con Today R55 - Syncope and collapse Vitamin B12 and Folate Today E53.8 - Deficiency of other specified B group vitamins Referrals Neurology Referral R20.2 - Paresthesia of skin, R25.3 - Fasciculation
== END 2025-01-05 11:48 | disposition home or self-care (01) ==
LOC: HO.HMCH 11:08
PROVIDERS: PCP Physician Assistant; Visit Provider Internal Medicine
DX: Z00.00 Encounter for general adult medical examination without abnormal findings (principal); R55 Syncope and collapse; R25.3 Fasciculation; R20.2 Paresthesia of skin; M54.2 Cervicalgia; R00.0 Tachycardia, unspecified; R07.9 Chest pain, unspecified

== ENCOUNTER → 2025-01-05 11:07 | Outpatient (BNVA) | payer OTHER, SELFPAY | PROVIDERS: PCP Physician Assistant; Visit Provider Internal Medicine | DX: Z00.00 Encounter for general adult medical examination without abnormal findings (principal); R00.0 Tachycardia, unspecified; R20.2 Paresthesia of skin; I10 Essential (primary) hypertension; J45.909 Unspecified asthma, uncomplicated; R55 Syncope and collapse; R25.3 Fasciculation; M54.2 Cervicalgia; R07.9 Chest pain, unspecified | CPT/HCPCS: 96127 ==

== ENCOUNTER 2025-01-06 09:25 | Outpatient (REF) | payer OTHER, SELFPAY ==
--- NOTE | ~2025-01-06 | XR_ITS ---
EXAMINATION: XR CERVICAL SPINE CLINICAL INFORMATION: M54.2 - Cervicalgia COMPARISON: None available. TECHNIQUE: 3 views of the cervical spine were obtained. FINDINGS: Normal alignment. No compression fracture. Disc spaces are preserved. Odontoid process appears intact and is well aligned with the lateral masses of C1. Prevertebral soft tissues are unremarkable. XR/XR cervical spine 2V IMPRESSION: Unremarkable examination. Electronically signed by: Leonor Barnes MD 01/06/2025 10:03 AM EDT
[2025-01-06 10:46] LABS: Cholesterol 141 mg/dL (<200); HDL Cholesterol 51 mg/dL (>40); Triglycerides 72 mg/dL (<150)
[2025-01-06 11:18] LABS: Folate 13.9 ng/mL (> or = 4.0); Vitamin B12 1052 pg/mL (200-900)
== END 2025-01-06 09:26 | disposition home or self-care (01) ==
LOC: HO.LAB 09:25
PROVIDERS: Visit Provider Internal Medicine
DX: M54.2 Cervicalgia (principal); E78.5 Hyperlipidemia, unspecified; E53.8 Deficiency of other specified B group vitamins
CPT/HCPCS: 36415; 72040; 80061; 82607; 82746

== ENCOUNTER → 2025-01-06 09:35 | Outpatient (BNV) | payer OTHER, SELFPAY | PROVIDERS: Visit Provider Radiology Body Imaging | DX: M54.2 Cervicalgia (principal) | CPT/HCPCS: 72040 ==

== ENCOUNTER → 2025-01-29 09:50 | Outpatient (BNV) | payer OTHER, SELFPAY | PROVIDERS: Visit Provider Radiology Diagnostic Radiology | DX: R55 Syncope and collapse (principal) | CPT/HCPCS: 70551 ==

== ENCOUNTER 2025-01-29 09:52 | Outpatient (REF) | payer OTHER, SELFPAY ==
--- NOTE | ~2025-01-29 | MR_ITS ---
EXAMINATION: MR BRAIN WITHOUT CONTRAST CLINICAL INFORMATION: Syncope and collapse. COMPARISON: None available. TECHNIQUE: MRI of the brain was obtained using routine sequences without contrast. FINDINGS: No restricted diffusion. No acute intracranial hemorrhage, mass effect, midline shift, hydrocephalus or herniation. Bilateral, a few, scattered, nonspecific cortical deep white matter hyperintense T2 FLAIR signal most conspicuous in the left frontal lobe. Mccall-white matter differentiation is normal. Posterior cranial fossa contents demonstrated no gross signal abnormality or masses. Sellar/suprasellar region is normal. Craniocervical junction demonstrates normal position of the cerebellar tonsils. Midline structures are intact. Flow-void signal within the main cerebral vessels is normal. MR/MR head/brain wo con IMPRESSION: No acute brain abnormality. Nonspecific white matter T2 FLAIR signal foci. These could be seen patients with migraines. Electronically signed by: Javier Jorge MD 01/31/2025 11:43 AM EDT
== END 2025-01-29 09:53 | disposition home or self-care (01) ==
LOC: HO.MRI 09:52
PROVIDERS: Visit Provider Internal Medicine
DX: R55 Syncope and collapse (principal)
CPT/HCPCS: 70551

== ENCOUNTER 2025-02-03 14:35 | Outpatient (REF) | payer OTHER, SELFPAY ==
--- NOTE | 2025-02-03 14:38 | EMG_ITS ---
Chief complaint: Woke up 1 morning in November with left leg numbness, lasted 2 days. Resolved now. Reason for referral: Evaluate for neuropathy Referred by: Dr. Elizabeth Bush Procedure done: Left lower extremity NCS/EMG Precautions and/or limitations: None The limb temperature was monitored continuously and remained between 32-36 degrees C during the performance of the NCS. Nerve Conduction Studies Anti Sensory Summary Table ?Stim Site NR Onset (ms) Norm Onset (ms) Peak (ms) Norm Peak (ms) O-P Amp (?V) Norm O-P Amp Site1 Site2 Delta-0 (ms) Dist (cm) Elgin (m/s) Norm Elgin (m/s) Left Sural Anti Sensory (Lat Mall) Calf ? 2.9 3.4 <4.0 7.3 >5.0 Calf Lat Mall 2.9 14.0 48 Motor Summary Table ?Stim Site NR Onset (ms) Norm Onset (ms) O-P Amp (mV) Norm O-P Amp iAmp (mV) Amp (1st) (%) Site1 Site2 Delta-0 (ms) Dist (cm) Elgin (m/s) Norm Elgin (m/s) Left Peroneal Motor (Ext Dig Brev) Ankle ? 3.4 <4.0 10.0 >2.5 13.1 100.0 Ankle Ext Dig Brev 3.4 0.0 B Fib ? 9.5 8.7 11.2 87.0 B Fib Ankle 6.1 30.5 50 >40 Poplt ? 10.2 8.6 11.2 86.0 Poplt B Fib 0.7 5.0 71 >40 Left Tibial Motor (Abd Rodrigez Brev) Ankle ? 3.5 <5 12.5 >2.5 17.4 100.0 Ankle Abd Rodrigez Brev 3.5 0.0 Knee ? 11.0 12.3 18.4 98.4 Knee Ankle 7.5 40.0 53 >40 EMG ?Side Muscle Nerve Root Ins Act Fibs Psw Amp Dur Poly Recrt Int Pat Comment Left AbdHallucis MedPlantar S1-2 Nml Nml Nml Nml Nml 0 Nml Complete Left AntTibialis Dp Br Peron L4-5 Nml Nml Nml Nml Nml 0 Nml Complete Left PostTibialis Tibial L5, S1 Nml Nml Nml Nml Nml 0 Nml Complete Left MedGastroc Tibial S1-2 Nml Nml Nml Nml Nml 0 Nml Complete Left VastusMed Femoral L2-4 Nml Nml Nml Nml Nml 0 Nml Complete Paraspinal EMG ?Side Muscle Nerve Root Ins Act Fibs Psw Comment Left Lumbar Upper Rami Nml Nml Nml Left Lumbar Mid Rami Nml Nml Nml Left Lumbar Lower Rami Nml Nml Nml FINDINGS: All motor and sensory nerves tested showed normal latencies, amplitudes and conduction velocities. Concentric needle EMG was performed in selected muscles of the left lower extremity and lumbar paraspinals. Study did not reveal signs of electric abnormalities as shown in the table above. IMPRESSION: 1. This is a normal study. 2. There is no electrodiagnostic evidence for peroneal neuropathy, tibial neuropathy, lumbosacral plexopathy, lumbar radiculopathy, or peripheral neuropathy. Thank you for your kind referral. Maribell Martinez MD, BRODERICK Board Certified, [place] Board of Physical Medicine and Rehabilitation (ABPMR) Board Certified, [place] Board of Electrodiagnostic Medicine (ABEM) [place] [id number] [facility]
== END 2025-02-03 14:36 | disposition home or self-care (01) ==
LOC: HO.NEURO 14:35
PROVIDERS: Visit Provider Internal Medicine
DX: R20.2 Paresthesia of skin (principal)
CPT/HCPCS: 95886; 95908

== ENCOUNTER → 2025-02-03 14:38 | Outpatient (BNV) | payer OTHER, SELFPAY | PROVIDERS: Visit Provider Physical Medicine & Rehabilitation | DX: R20.2 Paresthesia of skin (principal) | CPT/HCPCS: 95886; 95908 ==

== ENCOUNTER 2025-02-08 11:50 | Outpatient (REF) | payer OTHER, SELFPAY ==
[2025-02-08 13:36] LABS: Appearance Urine Clear; Glucose Urine UA Negative (Negative); PH 7.0 (5.0-9.0); Specific Gravity - Urine 1.010 (1.005-1.025); UMIC TRIGGER UACC YES
[2025-02-08 13:38] LABS: UACC Culture Trigger YES
== END 2025-02-08 11:51 | disposition home or self-care (01) ==
LOC: HO.LAB 11:50
PROVIDERS: PCP Internal Medicine; Visit Provider Internal Medicine
DX: R39.9 Unspecified symptoms and signs involving the genitourinary system (principal)
CPT/HCPCS: 81001; 87086; 87088; 87186

== ENCOUNTER → 2025-02-22 08:33 | Outpatient (REF) | payer OTHER, SELFPAY ==
--- NOTE | ~2025-02-22 | NM_ITS ---
EXERCISE MYOCARDIAL PERFUSION STUDY INDICATION: Chest pain, syncope TECHNIQUE: The patient was brought in for an exercise perfusion study on 02/22/2025. Patient performed exercise as per David protocol and was injected 25 mCi of sestamibi once target heart rate was achieved. Images were obtained using the SPECT gamma camera interlaced with the gating device. Images were obtained in supine position. Resting perfusion study was performed on 02/24/2025. Patient was administered 25 mCi of sestamibi intravenously at rest. Images were then obtained in supine position. Total DLP 57 mGy-cm. Images were processed with the software and compared side to side in short axis, horizontal long axis and vertical long axis views. FINDINGS: Raw aquisition reviewed. The stress perfusion study showed no significant perfusion abnormality. Both uncorrected as well as CT attenuation corrected images were reviewed. The gated study shows normal LV systolic function with calculated LVEF of 54%, visually higher. LV cavity is normal in size. The gated study shows normal wall thickening and contraction of segments. Resting study shows no significant perfusion abnormality. Gating at rest reveals normal wall motion with ejection fraction at 66%. The findings are consistent with no clear reversible or fixed perfusion abnormality. NM/SD cardiolite stress test IMPRESSION: 1. Myocardial perfusion imaging study shows normal myocardial perfusion. 2. Gated LVEF is 54% during stress-visually normal; 66% during rest.. 3. Transient ischemic dilatation not present. EKG component of the test reported separately. Electronically signed by: Jaron Rinaldi MD 02/25/2025 10:53 AM EDT
--- NOTE | 2025-02-22 08:36 | CA_ITS ---
Acquisition Time: 2025-02-22 08:41:01 Total Exercise Time: 00:08:00 Test Indications: CP,Syncope Medications: ALBUTEROL NABUMETONE Protocol: ANDRIY Max HR: 162 BPM 90% of Pred: 180 BPM Max BP: 116/70 mmHG Max Work Load: 10.1 METS Exercise stress test with exercise 8 min of Andriy protocol achieving 90% MPHR, without anginal symptoms, with rare PAC and PVCs, with baseline BP 100/70 and max BP 116/70, without EKG changes meeting criteria for ischemia. Nuclear images pending. Test reviewed with Dr Rinaldi. Referred By: Cherri Wong Electronically Signed By: GLORY CUNNINGHAM
== END ==
LOC: HO.CARD 08:33
PROVIDERS: Visit Provider Internal Medicine
DX: R07.9 Chest pain, unspecified (principal); R55 Syncope and collapse
CPT/HCPCS: 78452; 93017; A9500

== ENCOUNTER → 2025-02-22 08:36 | Outpatient (BNV) | payer OTHER, SELFPAY | PROVIDERS: Visit Provider Nurse Practitioner Family | DX: I49.1 Atrial premature depolarization (principal); I49.3 Ventricular premature depolarization | CPT/HCPCS: 78452; 93016; 93018 ==

== ENCOUNTER 2025-04-28 13:52 | Outpatient (AMB) | payer OTHER, SELFPAY ==
--- NOTE | 2025-04-28 13:55 | A.OFFVIS_ITS ---
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 no concerns Information Interpreted: non-clinical & clinical Statistical Financial Analyst: Statistical Financial Analyst Present (Nelli) Accompanied by: Self / Same As Patient Allergies levofloxacin (From LEVAQUIN) Allergy (Unknown, Verified 04/28/25 13:57) HIVES shellfish derived (SHELLFISH DERIVED) Allergy (Unknown, Verified 04/28/25 13:57) THROAT ITCHINESS/BURNING/SWELLING shrimp/shellfish Allergy (Intermediate, Uncoded 04/28/25 13:57) angioedema Medication List - Last Reconciled 04/28/25 by Clair Maya LPN albuterol sulfate 2.5 mg (3 mL) inhalation Q4-6H PRN 30 days albuterol sulfate 90 mcg/actuation 1 inh inhalation QID 30 days nabumetone 750 mg PO BID PRN 7 days Is last menstrual period known: Yes Last menstrual period: 04/10/25 Do you need a note to return to daycare/school/sports/work: No HPI Comments Details: Patient is a premenopausal woman presenting for annual examination. 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 Regular monthly menses. Currently is sexually active. She denies vaginal itching or irritation. STI screening offered; she declined. She tries to eat healthy and stays active with exercise. Last pap smear 2020, negative. Mammogram: 2024. History of left breast biopsy. [facility] Medical History Physical exam Breast calcification, left Left breast mass Surgical History History of left breast biopsy History of tubal ligation Family History Mother Hypertension Mental health disorder Father Prostate cancer Hypertension Paternal Grandfather Esophageal cancer Family/Other Substance use disorder Paternal Aunt Breast cancer Social History Housing: House Alcohol intake: unknown Patient Tobacco Use Status: Never used Tobacco e-Cigarette/Vaping Use: Never Used Second Hand Smoke Exposure: No Substance Use Type: Marijuana service: No Current occupational status: employed Current occupation: [employer] Current occupational exposures/hazards: No Gender identity: Female Cognitive needs: No Hearing needs: No Vision needs: No Female Reproductive History Menstrual Age of Menarche: 10 Date of last menstrual period: 04/10/25 control method: permanent sterilization Total pregnancies: 3 Number of Living Children: 3 Date of last pap smear: 08/11/20 History of abnormal pap smear: No Date of Mammogram: 12/14/24 History of abnormal mammogram: No Review of Systems Const All systems reviewed & are unremarkable except as noted in HPI and below Reports as per HPI Eyes Reports no additional complaints ENT Reports no additional complaints Card Reports no additional complaints Resp Reports no additional complaints GI Reports as per HPI and Reports no additional complaints Reports as per HPI Musc Reports no additional complaints Skin/Breast Reports as per HPI Neuro Reports no additional complaints Psych Reports no additional complaints Endo Reports no additional complaints Vlad/Lymph Reports no additional complaints Aller/Immun Reports no additional complaints Physical Exam Vital Signs: Last Vital Signs BP 100/62 04/28/25 14:01 BMI result Body Mass Index 22.8 Const General: cooperative, healthy appearing, no acute distress, well developed and alert Orientation/consciousness: patient oriented x3 HEENT Head: Yes normal to inspection Eyes General: appearance normal, both eyes and all related structures Neck Neck: Yes normal visual inspection Thyroid: Thyroid normal Chest Chest palpation & inspection: normal inspection of the chest and other (no puckering, dimpling, peau de orange, retraction, discharge, masses) Breast/axilla inspection: normal inspection of the breasts Breast/axilla palpation: normal palpation of the breasts Resp Effort & Inspection: normal respiratory effort GI Inspection: Yes normal to inspection Palpation (GI): Soft to palpation Rectal Exam - Female: deferred General: Yes bladder normal to palpation External Female Exam: normal external appearance and normal appearance of the urethra Speculum Exam - Vagina: normal appearance of the vagina, normal palpation and normal vaginal discharge Speculum Exam - Cervix: normal appearance of the cervix and normal palpation Bimanual exam- vagina & uterus: normal bimanual exam, normal palpation, uterine size normal, bladder normal to palpation, normal palpation and non-tender Bimanual Exam- Adnexa, other: no masses Skin General skin exam: no rashes or lesions noted Rashes: no rashes Neuro General: patient oriented x3 Cognition (Neuro): normal cognition Extrem General: Yes normal to inspection Psych Attitude: cooperative Thought process: Normal thought process present Assessment & Plan Assessment & Plan (1) Well woman exam with routine gynecological exam: Code(s): Z01.419 - Encounter for gynecological examination (general) (routine) without abnormal findings Category: Medical Plan Discussed: Current recommendations for pap smears per ASCCP guidelines. Breast awareness and periodic breast exams. Mammogram yearly. Has six-month follow up in May. Maintain a healthy lifestyle including a well balanced diet and routine exercise. Patient verbalizes understanding and agrees to the plan of care. She was given opportunity to ask questions and all questions were answered to the best of my ability. RTO in one year for annual relief man examination. This note is constructed using voice recognition software. While every effort has been made to ensure accuracy, press technician errors may have been included. Coding Level of Care Code Est Pt Prev Care 40-64y(80693) Diagnoses Well woman exam with routine gynecological exam Z01.419
[2025-04-28 14:01] VITALS: BP 100/62; BMI 22.8
== END 2025-04-28 14:27 | disposition home or self-care (01) ==
LOC: HO.HWS 13:53
PROVIDERS: PCP Internal Medicine; Visit Provider Advanced Practice Midwife
DX: Z01.419 Encounter for gynecological examination (general) (routine) without abnormal findings (principal)
CPT/HCPCS: 99396; 99459